=== PATIENT | male | born 1950 | race Caucasian/White ===

== ENCOUNTER → 2017-06-03 | Outpatient (CLI) | payer BC ==
[~2017-06-03] MED LIST: BNC5 PO; CALC600T9 PO; CLB/200 PO; DIAZ-165 PO; GLUCTAB7 PO; MULT-506 PO; NAPR1TAB9 PO; OMEG10007 PO; RANI150T85 PO; SIMV40TA2 PO; VENL75CA73 PO
--- NOTE | 2017-06-03 11:02 | DIAGNOSTIC IMAGING REPORT ---
L SHOULDER MIN 2 VIEWS CLINICAL HISTORY: LEFT SHOULDER PAIN pain COMPARISON: None. DISCUSSION: Moderate degenerative change of acromioclavicular joint. Glenohumeral joint is unremarkable. No abnormal soft tissue calcifications. No evidence for fracture or dislocation. There is no evidence for soft tissue swelling. IMPRESSION: Moderate degenerative change of the acromioclavicular joint. Otherwise negative study. The above report was generated using voice recognition software. It may contain grammatical, syntax or spelling errors. Electronically signed by: Jakob Brown M.D. 06/03/2017 11:01 AM Dictated Date/Time: 06/03/2017 11:00 AM
== END | disposition home or self-care (01) ==
LOC: C.RDSM 10:51
PROVIDERS: ATTEND Family Medicine
DX: M19.012 Primary osteoarthritis, left shoulder (principal)

== ENCOUNTER → 2017-06-05 | Outpatient (CLI) | payer BC ==
[~2017-06-05] MED LIST changes: -RANI150T85 PO; +ZNTT/150 PO
--- NOTE | 2017-06-05 17:59 | DIAGNOSTIC IMAGING REPORT ---
L UPPER EXT JOINT WITHOUT CLINICAL HISTORY: 66 years-old Male presenting with LEFT SHOULDER PAIN, INJURY TO LEFT ROTATOR CUFF, injury 4 days ago, braced fall with left arm, now with stiffness, pain, limited range of motion. TECHNIQUE: Multisequence, multiplanar MR imaging of the left shoulder was performed without the use of intravenous contrast. IV contrast: None. COMPARISON: Plain radiographs from 06/03/2017. FINDINGS: Localizer images: Unremarkable. Mild bony edema noted at the acromioclavicular joint, which demonstrates hypertrophic degenerative change. No other sites of bony edema. However, extensive interfascial edema throughout the rotator cuff musculature. Prominent loose body in the subcoracoid recess. Evidence of a complete rotator cuff tear of the supraspinatus and infraspinatus tendons with retraction of the tendon over 4 cm from the insertional footplate. The free edge of the tendons are frayed. Teres minor tendon is intact. Additionally, there is tear of the transverse ligament of the subscapularis tendon with displacement of the long head of the biceps tendon medially. Long head of the biceps tendon grossly normal in appearance. Short head of the biceps tendon intact. Findings suggestive of a labral tear involving the anterior inferior labrum. The biceps labral complex is grossly intact. Articular cartilage thinning of the inferior humeral head may be present. Slight superior subluxation of the humeral head with narrowing of the acromiohumeral interval. Trace fluid in the subacromial subdeltoid bursa and trace joint fluid. No fatty atrophy of the musculature. IMPRESSION: 1. Complete rotator cuff tear of the supraspinatus and infraspinatus tendons, which appears acute evidence by extensive interfascial edema. Retraction of frayed tendons over 4 cm from the insertional footplate. 2. Tear of the transverse ligament portion of the subscapularis tendon with medial displacement of the long head of the biceps tendon. 3. Anterior inferior labral tear. 4. Degenerative changes of the acromioclavicular joint. 5. Loose body in the subcoracoid recess. Electronically signed by: Jarvis Aguirre M.D. 06/05/2017 5:58 PM Dictated Date/Time: 06/05/2017 5:49 PM
== END | disposition home or self-care (01) ==
LOC: C.MRIBC 15:29
PROVIDERS: ATTEND Family Medicine
DX: S46.012A Strain of muscle(s) and tendon(s) of the rotator cuff of left shoulder, initial encounter (principal); S43.402A Unspecified sprain of left shoulder joint, initial encounter; X58.XXXA Exposure to other specified factors, initial encounter; M24.012 Loose body in left shoulder

== ENCOUNTER → 2017-06-22 | Day surgery (SDC) | payer OTHER ==
[2017-06-11 12:18] VITALS: Ht 177.8 cm; Wt 79.5 kg
[~2017-06-22] VITALS: Ht 177.8 cm; Wt 79.5 kg
[~2017-06-22] MED LIST changes: +ACETAMINOPHEN 1000 MG/100 ML IV IV ONE; +ATROPINE SULFATE 0.1 MG/ML 5ML SYR IV PRN; +CLINDAMYCIN PHOS 150 MG/ML 2 ML VIAL IV SCH; +DEXAMETHASONE SOD INJ 4 MG/ML VIAL ONE; +EpHEDrine SULFATE INJ 50 MG/ML AMP IV PRN; +EpINEphrine HCL INJ 1 MG/ML 5ML SYRINGE ONE; +FENTANYL CITRATE INJ 50 MCG/1 ML 2 ML VIAL IV PRN; +FENTANYL CITRATE INJ 50 MCG/1 ML 2 ML VIAL ONE; +GLYCOPYRROLATE INJ 0.2 MG/ML VIAL ONE; +HYDROmorphone INJ 1 MG/ML SYR IV PRN; +LACTATED RINGER'S 1000ML 1,000 ML IV SCH; +LIDOCAINE HCL 2% 2 ML VIAL (20MG/ML) ONE; +MIDAZOLAM HCL 1 MG/ML 2ML VIAL ONE; +MoRPHine SULFATE 4 MG/ML 1 ML CARP\\VIAL IV PRN; +NEOSTIGMINE METHYLSULFATE 5 MG/5 ML SYR ONE; +ONDANSETRON INJ 2 MG/ML 2 ML VIAL IV PRN; +ONDANSETRON INJ 2 MG/ML 2 ML VIAL ONE; +OXYCODONE/ACETAMINOPHEN 5-325 TAB PO PRN; +PROMETHAZINE HCL INJ 12.5 MG in SODIUM CHLORIDE 0.9% 50ML 50 ML IV PRN; +PROPOFOL IV EMULSION 10 MG/ML 20 ML VIAL IV ONE; +ROCURONIUM BROMIDE 10 MG/ML 5 ML VIAL IV ONE; +ROPIVACAINE 0.5% 5 MG/ML 30 ML VIAL ONE; +SODIUM CHLORIDE 0.9% 1000ML 1,000 ML IV SCH; +SUCCINYLCHOLINE CHLORIDE 20 MG/ML 10 ML VIAL IV ONE
--- NOTE | 2017-06-22 08:42 | History & Physical Bridge - SC ---
H&P Re-Evaluation Bridge Note: I have examined the patient, reviewed the History & Physical and in the interval since the performance of the History & Physical I have noted the following changes of clinical significance: No changes noted
--- NOTE | 2017-06-22 13:29 | [facility] Post Operative Brief Note ---
Immediate Operative Summary Operative Date Jun 22, 2017. Pre-Operative Diagnosis Left Shoulder Rotator Cuff Tear Post-Operative Diagnosis Same Procedure(s) Performed Left Shoulder Arthoscopy,3 Tendon Rotator Cuff Repair, Biceps Tenotomy, Subacromial Decompression Surgeon Dr. Norwood Organ Recovery Coordinator Surgeon(s) Bindu William PA-C Estimated Blood Loss 10 ml Findings Biceps tendon subluxated medially out of the groove. Biceps tenotomy performed. Upper border subscapularis tear repaired with inverted mattress suture. Retracted supraspinatus tear repaired with four anchors, double row technique with 8 passes of suture through the tendon. Inverted mattress suture used to repair the infraspinatus. Subacromial spur removed, converting type 2 acromion to type 1. Fluids (cc crystalloids) 1300 cc Specimens None Drains None Anesthesia General with interscalene block Complication(s) None Disposition Recovery Room / PACU
--- NOTE | 2017-06-22 13:53 | [facility] Operative Report ---
Operative Report Operative Date Jun 22, 2017. Pre-Operative Diagnosis Left Shoulder Rotator Cuff Tear Post-Operative Diagnosis Same Procedure(s) Performed Left Shoulder Arthoscopy,3 Tendon Rotator Cuff Repair, Biceps Tenotomy, Subacromial Decompression Surgeon Dr. Norwood Solar Hot Water Installer Surgeon(s) Bindu William PA-C Estimated Blood Loss 10 ml Findings Massive left shoulder rotator cuff tear Fluids (cc crystalloids) 1300 cc Specimens None Complication(s) None Disposition Recovery Room / PACU I attest to the content of the Intraoperative Record and any orders documented therein. Any exceptions are noted below.
--- NOTE | 2017-06-22 13:59 | Discharge Instructions ---
Discharge Instructions Date of Service Jun 22, 2017. Admission Reason for Admission: Left Shoulder Rotator Cuff Tear Discharge Discharge Diagnosis / Problem: Left shoulder massive rotator cuff tear Discharge Goals Goal(s): Decrease discomfort, Improve function, Increase independence Activity Recommendations Activity Limitations: as noted below Lifting Limitations: until after follow-up appointment (No lifting more than coffee cup for 6 wks) Exercise/Sports Limitations: until after follow-up appointment May Resume Sexual Activity: after follow-up appointment Shower/Bathe: tomorrow, keep incision dry Driving or Machine Use: No driving until cleared by orthopedic surgeon Weightbearing Status: Left non-weightbearing (No lifing more than coffee cup with left arm for 6 wks.) . Instructions / Follow-Up Instructions / Follow-Up Post-operative Instructions Dear Patient and Family/Friends, Before you are discharged from the hospital, it is important to know what to expect when you get home after surgery. To that end, we have created this sheet of discharge instructions which covers many commonly asked questions. Make sure you go through this sheet in its entirety with your nurse before you are discharged. Please note that we will go over the specifics of your surgery and recovery when you return for your first post-operative visit. Sincerely, Dr. Norwood Pain Expect to be in a fair amount of pain after surgery. Remember, our goal is not to eliminate your pain, but to make it tolerable. It is a good idea to stay ahead of your pain by taking the medications you were prescribed once you get home. Typically, the pain starts improving 3-7 days after surgery. You should start weaning off the narcotic pain medication (oxycodone, hydrocodone, hydromorphone, morphine) as soon as your pain improves. Please call our office if your pain is not adequately controlled. Ice Ice your operative site at least 5 times a day for 15-30 minutes at a time. Make sure you have a thin cloth between the ice or cooling unit and your skin to prevent ojeda bite. This is especially important if you received a nerve block. Continue icing your operative site for the first 5-7 days after surgery , then as needed. Diet/Nausea/Vomiting Start by drinking clear liquids and eating crackers. If you can tolerate this, then you may resume your normal diet. If you feel nauseated or vomit, take Zofran/ondansetron (if prescribed). Please call our office if you have intractable nausea or vomiting, or, if after hours, you may go to the Emergency Room for help. Constipation Constipation is a common side effect of narcotic pain medication. If you have not had a bowel movement within 2 days after surgery, we recommend purchasing an over the counter laxative such as Milk of Magnesia, Dulcolax, or Miralax from a local pharmacy, and taking it as instructed. Call our clinic if any questions. Slings and Braces If you were placed in a sling or brace, it must be worn at all times, including sleep. You may remove your sling or brace for physical therapy, home exercises , and showering. The length of time you will be in your brace and range of motion restrictions depends on what surgery you had; these details will be reviewed at your first post-operative appointment. Nerve block The anesthesia team sometimes places a nerve block to help with post-operative pain control. This results in significant numbness and inability to move the extremity. The nerve block usually wears off in 8-12 hours, but sometimes can last up to 24 hours. Please call our office if you are still unable to move your extremity after 24 hours, unless you received a pain pump to take home. Nerve blocks typically wear off quickly, so start taking pain medication as soon as you start feeling soreness near your surgical site. Weight bearing and Range of Motion. Do not bear any weight through your operative extremity immediately after surgery. If you had upper extremity surgery, do not lift anything with that arm. If you are in a knee brace, keep it locked in place until your follow-up. We will discuss your weight bearing, range of motion, and lifting restrictions in detail at your first post-operative appointment. Continuous Passive Motion (CPM) Machine If you were prescribed a CPM machine, it will start after your first post- operative appointment, at which time we will give you instructions on the range of motion settings and duration of treatment Physical therapy You will be given a prescription for physical therapy or occupational therapy at your first post-operative appointment. Typically, patients start therapy within 1 week of surgery. We may not start your PT for 6 wks. You may be able to do pendulum exercised and table slides in 1-2 wks. You may come out of sling to move your elbow, wrist and hand/fingers. Wound care and showering We will inspect your wound at your first post-operative visit, and may do a dressing change at that time. Most patients will be in a water-proof dressing that is removed 14 days after surgery. It is normal to see some dried blood on the dressing. Do not remove your dressing, paper strips or sutures yourself unless you are given permission. Showering is allowed the day after surgery. Do not scrub or remove any dressings. The wound should not be submerged underwater (i.e. in a bathtub or pool) until 4 weeks after surgery KEILA stockings If you were given white stockings, these are to be worn at all times except to shower (on both legs) for the first 2 weeks after surgery. Driving You may not drive while taking narcotic pain medication or while in a cast, splint, sling or brace. You, the patient, need to make the final determination about when you are safe to drive, however, the earliest you may consider driving after surgery is below: Hand/Wrist/Elbow Surgery: 3 days Shoulder Surgery: 2 weeks Hip,/Knee/Ankle Surgery: 4 weeks Fracture repair: 6 weeks Return to Work Your return to work depends on what surgery was done and what type of work you do. Please bring any paperwork your employer needs completed to your first post -operative visit. Also, bring a description of your job duties, as this helps us to understand what risks you may face at work. Travel Avoid long distance travel (greater than 1 hour) in airplanes and cars for the first 6 weeks after surgery. If you must travel, you need to have a Doppler ultrasound done before you travel to rule out a blood clot in your legs. Follow-up You should have a follow-up appointment already scheduled 1-2 days after surgery. If not, please contact our office to make this appointment before you leave the hospital. When to call the office It is normal to have swelling and bruising in the limb that was operated on. This will improve with time. It is also normal to have fevers for the first 2 days after surgery. Reasons you should call your doctor include: Uncontrolled pain; Nausea, vomiting, or constipation that does not improve with medication; Fevers over 101.5, chills, sweats; Drainage or bleeding from the wound; Foul odor; Spreading areas of redness; Any other concerns Current Hospital Diet Patient's current hospital diet: Discharge Diet Recommended Diet: Regular Diet Procedures Procedures Performed: Left Shoulder Arthoscopy,3 Tendon Rotator Cuff Repair, Biceps Tenotomy, Subacromial Decompression Pending Studies Studies pending at discharge: no Medical Emergencies . Who to Call and When: Medical Emergencies: If at any time you feel your situation is an emergency, please call 911 immediately. . Non-Emergent Contact Non-Emergency issues call your: Primary Care Provider Call Non-Emergent contact if: you have a fever, temperature is above 101.5, your pain is not controlled, your pain is worsening, wound has increased drainage, you have any medication questions . "Provider Documentation" section prepared by Olvin William. . VTE Core Measure Inpt VTE Proph given/why not?: Other Anticoagulation (Aspirin EC 81 mg), ThuyELyla Diaz PA Drug Monitoring Program Search Results: patient reviewed within database, no issues identified, see additional documentation
[2017-06-22 14:25] VITALS: TEMP 36.4
--- NOTE | 2017-06-22 14:48 | OPERATIVE REPORT ---
DATE OF OPERATION: 06/22/2017 PREOPERATIVE DIAGNOSES: Left shoulder massive rotator cuff tear, medially subluxated and torn biceps tendon and subacromial spur. POSTOPERATIVE DIAGNOSES: Same. OPERATIONS PERFORMED: 1. Left shoulder arthroscopic repair of subscapularis, supraspinatus and infraspinatus tendons. Each torn tendon was repaired independently of the other two. 2. Left shoulder biceps tenotomy. 3. Left shoulder subacromial decompression. SURGEON: Jarvis Norwood MD SEWING DEPARTMENT SUPERVISOR: Alden William and Sanjuana Jasso. IV FLUIDS: 1300 mL of crystalloid. ESTIMATED BLOOD LOSS: 10 mL. URINE OUTPUT: Not recorded. COMPLICATIONS: None. SPECIMENS: None. IMPLANTS: 1. Two Arthrex 4.75 corkscrew anchors, double loaded. 2. Four Arthrex self-tapping SwiveLock anchors. INDICATIONS: Mr. Mccollum is a 66-year-old gentleman who had an injury when he fell, walking down stairs, and landing on an outstretched arm on 06/02/2017. Since that time, he has had inability to lift his shoulder. He did have some antecedent shoulder pain, but was never functionally debilitating. On physical exam, his forward flexion was less than the horizontal, similar with abduction. MRI was obtained, showing fatty infiltration of the infraspinatus, indicating a chronic tear as well as a full thickness retracted tear of the supraspinatus and upper border subscapularis tear with subluxation of the biceps tendon. I had a long discussion with him about treatment options. Surgery was indicated to improve his function and allow him to return to his activities of daily living. He understands that due to the massive nature of the tear that the tendons do not always heal even with a good repair. However, the best time to fix it is in the acute period. After reviewing all the risks and benefits of surgery, and answering all his questions, informed consent was signed. OPERATIVE FINDINGS: 1. Biceps tendon was subluxated medially out of the groove. There was fraying noted at its insertion onto the superior labrum. 2. There was a tear of the upper border of the subscapularis involving the proximal 1 cm. 3. There was a full thickness tear of the supraspinatus that was retracted to the level of the glenoid. 4. There was a tear of the infraspinatus with degenerative fraying of the tendon stump at its insertion. 5. The axillary pouch was free of any loose bodies. 6. The articular cartilage of the humeral head was normal. 7. The articular cartilage of the glenoid was normal. 8. The labrum showed degenerative fraying along its posterior, anterior and superior margins. The labral fraying was debrided back to a stable margin. A biceps tenotomy was performed. A single row repair was performed of the upper border subscapularis tear. A double row repair was performed of his supraspinatus tear. A single row repair was performed for his infraspinatus. A subacromial spur was noted consistent with a type 2 acromion. This was removed to a flat surface converting him to a type 1 acromion. DESCRIPTION OF THE OPERATION: The patient was identified in the preoperative holding area, where his surgical site was marked. He was given interscalene block by anesthesia and brought back to the main operating room, where he was placed on the operating room table and general anesthesia was administered. He was moved into the lateral decubitus position. Axillary roll was placed. Beanbag was inflated. All bony prominences were padded. Perioperative antibiotics were administered. He was prepped and draped in the normal sterile fashion. Prior to incision, a multidisciplinary timeout was called. All in the room were in agreement. We began by placing the arm in 10 pounds of longitudinal traction at 30 degrees of forward flexion and 45 degrees of abduction. Posterior viewing portal was created. Diagnostic arthroscopy was performed revealing the above findings. We then introduced the shaver, which was used to debride the labrum back to a stable base. The Arthrex cool cut wand was then used to perform the biceps tenotomy, flush with the insertion into the superior labrum. The biceps tendon retracted out of the joint nicely. We then made an anterior superolateral portal. Through this portal, we were able to debride the footprint of the lesser tuberosity, from which the subscapularis had torn. The scorpion was introduced through the anterior superolateral portal and was used to pass a FiberTape through the torn upper border of the subscapularis. The sutures were fed through a self-punching SwiveLock anchor, which was then placed into the footprint, tapped down into position without difficulty. Next, the scope was moved into subacromial space. Extensive bursitis was encountered, which was removed with the shaver through a lateral working portal. The rotator cuff tear was then explored. Using a [place], I was able to reduce the supraspinatus back on to the footprint; however, his tendon quality was somewhat degenerated and it was under some tension. The cool cut was used to release the supra and infraspinatus muscle bellies off of the acromion, exposing the scapular spine. I then slightly medialized his footprint by approximately 2 mm and debrided this down to fresh bleeding bone. I then made a stab incision just off the lateral acromion after localizing with a spinal needle for his medial row anchors. These were placed first anteriorly and we used the tap as his bone quality was excellent. The sutures were passed up in a horizontal mattress fashion from anterior to posterior. They were shuttled out through an anterior cannula. The more posterior anchor was then placed and sutures were similarly passed in a horizontal mattress fashion. Next, while holding the supraspinatus reduced with a [place], the sutures were tied from posterior to anterior. Once this was complete, one Tigerwire and one Fiberwire suture from each anchor, for a total of 4 sutures, were brought out through the lateral working portal and fed through a self-punching SwiveLock and was placed posteriorly. The sutures were then cut flush. The remaining 4 sutures were then similarly pulled out through the lateral working portal, threaded through the eyelet of a self-punching SwiveLock anchor and then the anterior lateral row anchor was placed. Excellent fixation was obtained. Next, I explored the infraspinatus, which was completely torn off the footprint Therefore, an inverted mattress FiberTape was passed through the infraspinatus and these sutures were placed through a self-punching SwiveLock anchor to reduce the infraspinatus back on to the footprint. At this point, the cuff repair had excellent stability and a nice coverage of the footprint. The subacromial spur was exposed and a 5-0 barrel bur was used to resect this back to a flat margin, converting to a type 1 acromion. The arthroscopic instruments were then removed. His portals were closed with inverted 3-0 Monocryl sutures. Steri-Strips were applied followed by 2 x 2s and Tegaderms. He was then placed into a sling with an abduction pillow. He was rolled supine carefully and extubated and transferred to the recovery room in stable condition. POSTOPERATIVE COURSE: The patient will follow up in my clinic tomorrow, where we will review his arthroscopic images and postoperative restrictions as well as have his first physical therapy appointment. At that point, he will be instructed on pendulum and table top slides. I will avoid any formal physical therapy until after his 6-week postoperative visit. He will be on a massive rotator cuff repair physical therapy protocol. He will be on aspirin for DVT prophylaxis. I attest to the content of the Intraoperative Record and any orders documented therein. Any exceptions are noted below. ALFA
[2017-06-22 15:00] VITALS: BP 108/73; PULSE 70; O2SAT 98
--- NOTE | 2017-06-22 15:04 | Anesthesia Progress Nt - [facility] ---
Anesthesia Post Op Note Date & Time Jun 22, 2017 at 15:04 Vital Signs Pain Intensity: 0 Vital Signs Past 12 Hours Date Time Temp Pulse Resp B/P (MAP) Pulse Ox O2 Delivery O2 Flow Rate FiO2 06/22/17 15:00 70 16 108/73 (85) 98 Room Air 06/22/17 14:25 36.4 82 16 118/64 (82) 97 Room Air 06/22/17 14:22 36.6 84 16 130/80 96 Room Air 06/22/17 14:19 83 14 96 06/22/17 14:19 83 14 06/22/17 14:15 117/90 06/22/17 14:14 88 17 06/22/17 14:14 87 17 97 06/22/17 14:11 109/91 06/22/17 14:09 81 15 100 06/22/17 14:09 82 15 06/22/17 14:05 127/81 06/22/17 14:04 89 15 100 06/22/17 14:04 89 15 06/22/17 14:00 117/86 06/22/17 13:59 89 13 100 06/22/17 13:59 89 13 06/22/17 13:58 88 18 99 06/22/17 13:58 88 18 06/22/17 13:55 120/77 06/22/17 13:53 92 19 100 06/22/17 13:53 93 19 06/22/17 13:52 122/84 06/22/17 13:52 37.0 90 16 122/84 100 Mask 06/22/17 10:08 70 0 100 06/22/17 10:08 70 06/22/17 10:07 64 22 100 06/22/17 10:07 63 06/22/17 10:05 111/71 06/22/17 10:02 68 06/22/17 10:02 68 30 100 06/22/17 10:00 116/72 06/22/17 09:57 66 06/22/17 09:57 67 24 100 06/22/17 09:56 65 06/22/17 09:56 65 24 100 06/22/17 09:55 116/73 06/22/17 09:51 63 15 100 06/22/17 09:51 63 06/22/17 09:50 118/73 06/22/17 09:46 62 17 100 06/22/17 09:46 62 06/22/17 09:45 114/73 06/22/17 09:41 65 06/22/17 09:41 65 23 100 06/22/17 09:40 121/78 06/22/17 09:36 65 06/22/17 09:36 65 16 100 06/22/17 09:35 114/72 06/22/17 09:31 66 06/22/17 09:31 66 19 100 06/22/17 09:30 62 17 114/76 06/22/17 09:25 68 06/22/17 09:25 68 10 134/78 98 06/22/17 09:20 64 11 112/80 06/22/17 09:15 68 13 120/77 99 06/22/17 09:15 69 06/22/17 09:10 64 18 111/76 100 06/22/17 09:10 62 06/22/17 09:05 65 06/22/17 09:05 65 15 100/71 100 06/22/17 09:04 110/71 06/22/17 09:00 63 0 06/22/17 08:55 0 06/22/17 08:50 0 06/22/17 08:45 0 06/22/17 08:40 0 06/22/17 08:35 0 06/22/17 08:25 36.7 73 16 121/76 (91) 98 Room Air Notes Mental Status: alert / awake / arousable, participated in evaluation Pt Amnestic to Procedure: Yes Nausea / Vomiting: adequately controlled Pain: adequately controlled Airway Patency, RR, SpO2: stable & adequate BP & HR: stable & adequate Hydration State: stable & adequate Anesthetic Complications: no major complications apparent
== END | disposition home or self-care (01) ==
LOC: X.SURG 07:30
PROVIDERS: ATTEND Orthopaedic Surgery
DX: S46.012A Strain of muscle(s) and tendon(s) of the rotator cuff of left shoulder, initial encounter (principal); W10.8XXA Fall (on) (from) other stairs and steps, initial encounter; S46.202A Unspecified injury of muscle, fascia and tendon of other parts of biceps, left arm, initial encounter; M75.92 Shoulder lesion, unspecified, left shoulder; I10 Essential (primary) hypertension; E78.5 Hyperlipidemia, unspecified; K21.9 Gastro-esophageal reflux disease without esophagitis; I73.00 Raynaud's syndrome without gangrene; F41.9 Anxiety disorder, unspecified; F32.9 Major depressive disorder, single episode, unspecified; Z79.899 Other long term (current) drug therapy

== ENCOUNTER → 2017-07-30 | Outpatient (CLI) | payer OTHER ==
[~2017-07-30] MED LIST changes: -ACETAMINOPHEN 1000 MG/100 ML IV IV ONE; -ATROPINE SULFATE 0.1 MG/ML 5ML SYR IV PRN; -CLINDAMYCIN PHOS 150 MG/ML 2 ML VIAL IV SCH; -DEXAMETHASONE SOD INJ 4 MG/ML VIAL ONE; -EpHEDrine SULFATE INJ 50 MG/ML AMP IV PRN; -EpINEphrine HCL INJ 1 MG/ML 5ML SYRINGE ONE; -FENTANYL CITRATE INJ 50 MCG/1 ML 2 ML VIAL IV PRN; -FENTANYL CITRATE INJ 50 MCG/1 ML 2 ML VIAL ONE; -GLYCOPYRROLATE INJ 0.2 MG/ML VIAL ONE; -HYDROmorphone INJ 1 MG/ML SYR IV PRN; -LACTATED RINGER'S 1000ML 1,000 ML IV SCH; -LIDOCAINE HCL 2% 2 ML VIAL (20MG/ML) ONE; -MIDAZOLAM HCL 1 MG/ML 2ML VIAL ONE; -MoRPHine SULFATE 4 MG/ML 1 ML CARP\\VIAL IV PRN; -NAPR1TAB9 PO; -NEOSTIGMINE METHYLSULFATE 5 MG/5 ML SYR ONE; -ONDANSETRON INJ 2 MG/ML 2 ML VIAL IV PRN; -ONDANSETRON INJ 2 MG/ML 2 ML VIAL ONE; -OXYCODONE/ACETAMINOPHEN 5-325 TAB PO PRN; -PROMETHAZINE HCL INJ 12.5 MG in SODIUM CHLORIDE 0.9% 50ML 50 ML IV PRN; -PROPOFOL IV EMULSION 10 MG/ML 20 ML VIAL IV ONE; +RANI150T85 PO; -ROCURONIUM BROMIDE 10 MG/ML 5 ML VIAL IV ONE; -ROPIVACAINE 0.5% 5 MG/ML 30 ML VIAL ONE; -SODIUM CHLORIDE 0.9% 1000ML 1,000 ML IV SCH; -SUCCINYLCHOLINE CHLORIDE 20 MG/ML 10 ML VIAL IV ONE; -ZNTT/150 PO
== END | disposition home or self-care (01) ==
LOC: C.RDSM 17:37
PROVIDERS: ATTEND Orthopaedic Surgery
DX: Z98.890 Other specified postprocedural states (principal)

== ENCOUNTER 2023-05-10 06:59 | Inpatient (IN) ==
--- OUTSIDE RECORDS SUMMARY | 2023-05-10 07:03 | External Medical Summary | Continuity of Care Document ---
Author Name Unknown Organization [facility] [id number] Address [address] [place], [place] [id number] Care Team Providers Care Class A Regional Truck Driver Name Role Phone Pancho Pedraza Primary Care Physician [phone] [id number] Date(s): 11/27/[facility] - 11/27/22 [facility] [address], [address] [place] [address] [phone] Discharge Disposition: Home or Self Care Attending Physician: DO Alfonso Jason D Referring Physician: MD Cecilio, Madhav Rizzo Allergies, Adverse Reactions, Alerts No Known Allergies Immunizations Given and Recorded Vaccine Date Status Refusal Reason influenza virus vaccine, inactivated 03/19/22 Phan rded influenza virus vaccine, inactivated 03/23/18 Give n SARS-CoV-2 mRNA (tobrendanameran 5y-11y) 03/19/22 Phan rded SARS-CoV-2 (COVID-19) mRNA BNT-162b2 vax 1 10/31/21 Recorded SARS-CoV-2 (COVID-19) mRNA BNT-162b2 vax 2 08/01/20 Recorded SARS-CoV-2 (COVID-19) mRNA BNT-162b2 vax 3 07/11/20 Recorded tetanus/diphtheria/pertuss, acel (Tdap) 04/03/20 R ecorded tetanus/diphtheria/pertuss, acel (Tdap) 09/15/16 G iven tetanus/diphtheria/pertuss, acel (Tdap) 12/19/05 R ecorded pneumococcal 23-valent vaccine 08/15/19 Recorded zoster vaccine, inactivated 11/07/18 Recorded zoster vaccine, inactivated 06/17/18 Recorded pneumococcal 13-valent vaccine 06/08/17 Recorded zoster vaccine live 08/17/15 Given zoster vaccine live 02/18/13 Given hepatitis B adult vaccine 12/19/05 Recorded hepatitis B adult vaccine 11/30/03 Recorded hepatitis B adult vaccine 02/12/01 Recorded hepatitis A adult vaccine 12/16/05 Recorded hepatitis A adult vaccine 02/12/01 Recorded poliovirus vaccine, inactivated 02/12/01 Recorded 1Result Comment: [facility] pharmacy 2Result Comment: 2020-12-17: Historical information-source unspecified 3Result Comment: 2020-12-17: Historical information-source unspecified Medications atorvastatin 40 mg oral tablet Start: 11/04/22 11:25:00 EDT, See Instructions, Disp# 90 tab, Refills: 3, TAKE 1 TABLET BY MOUTH EVERY DAY, Pharmacy: [email or web address] Start Date: 11/04/22 Status: Ordered calcium-vitamin D extended release Start: 03/28/20 14:46:00 EDT Start Date: 03/28/20 Status: Ordered celecoxib 100 mg oral capsule Start: 02/26/22 9:53:00 EDT, See Instructions, Disp# 90 cap, Refills: 3, TAKE 1 CAPSULE BY MOUTH EVERY DAY, Pharmacy: [email or web address] Start Date: 02/26/22 Status: Ordered diazePAM 5 mg oral tablet Start: 06/10/22 10:31:00 EST, See Instructions, 0.5 tab qhs by psychiatry Start Date: 06/10/22 Status: Ordered diclofenac 1% topical gel Start: 11/12/22 13:18:00 EDT, See Instructions, Disp# 100 g, Refills: 3, APPLY TOPICALLY 4 TIMES DAILY NEEDED FOR LOW BACK PAIN, Pharmacy: [id number] Start Date: 11/12/22 Status: Ordered Effexor 37.5 mg oral tablet Start: 07/04/22 14:17:00 EST, 1 tab, PO, Daily Start Date: 07/04/22 Status: Ordered Effexor 75 mg oral tablet Start: 07/04/22 14:16:00 EST, 1 tab, PO, Daily Start Date: 07/04/22 Status: Ordered famotidine 40 mg oral tablet Start: 07/17/22 13:55:00 EST, See Instructions, Disp# 180 tab, Refills: 3, TAKE 1 TABLET BY MOUTH TWICE A DAY, Pharmacy: [email or web address] Start Date: 07/17/22 Status: Ordered glucosamine Start: 03/28/20 14:46:00 EDT Start Date: 03/28/20 Status: Ordered multivitamin Start: 03/28/20 14:46:00 EDT Start Date: 03/28/20 Status: Ordered naproxen 500 mg (as sodium) oral tablet, extended release Start: 02/04/18 12:18:21 EDT, 1 tab, PO, bid, Disp# 28 tab, PRN: as needed for pain, Pharmacy: [id number] Start Date: 02/04/18 Stop Date: 02/18/18 Status: Ordered olmesartan 5 mg oral tablet Start: 01/30/22 12:40:00 EDT, See Instructions, Disp# 90 tab, Refills: 3, TAKE 1 TABLET BY MOUTH EVERY DAY, Pharmacy: [id number] Start Date: 01/30/22 Status: Ordered potassium bicarbonate Start: 03/28/20 14:47:00 EDT Start Date: 03/28/20 Status: Ordered Viagra 100 mg oral tablet Start: 07/04/22 14:51:00 EST, 1/2-1 tab, PO, Daily, Disp# 6 tab, Refills: 11, 1 hour before sexual activity, PRN: as needed for erectile dysfunction, Pharmacy: [facility]/pharmacy #[id number] Start Date: 07/04/22 Status: Ordered Vitamin D3 Start: 03/28/20 14:46:00 EDT Start Date: 03/28/20 Status: Ordered Problem List Condition Confirmation Course Effective Dates Status H ealth Status Informant ANXIETY Confirmed Active Callus Confirmed Active GERD Confirmed Active Hammertoe of right foot Confirmed Active S/P lumbar laminectomy Confirmed 01/06/18 Active S/P rotator cuff repair 1 Confirmed Active Hyperlipidemia Confirmed Active HYPERTENSION Confirmed Active Low back pain Confirmed Active Medicare annual wellness visit, subsequent Confirmed Active Major depressive disorder, recurrent episode, mild Confirmed Active Need for pneumococcal vaccine Confirmed Active Total globulins measurement Confirmed Active Weight disorder Confirmed Active 1Left Procedures Procedure Date Related Diagnosis Body Site Status MRI - L Spine W/O Contrast 1 02/12/18 Completed X-ray L-Spine bending only 2 02/01/18 Completed Rotator cuff repair 3 06/22/17 Com pleted MRI of shoulder 4 06/05/17 Complet ed Shoulder X-ray 5 06/03/[address] of abdomen and pelvis 6 05/14/16 Completed Colonoscopy 7 04/20/07 Completed wisdom teeth extraction C ompleted 1multilevel degenerative changes present throughout the lumbar spine as described, most severely affecting the L3-4 and L4-5 21. Mildy increased grade 1 retrolisthesis of L4 on L5 with extension 2. No acute frature notified 3left shoulder 4extensive-see scanned report 5Moderate degenerative change of the acromiocclavicular joint. Otherwise negative study. 61) Small left inguinal hernia which contains fat and a small portion of the left anterior bladder. 2) No bowel wall thickening or obstruction 3) Normal appendix 7Colonoscopy normal- Repeat in 10 years. Social History Social History Type Response Smoking Status Never smoked cigaret racquel Sex Male Patient Care team information Care Team Personnel Name: MD Barak, Damian Mustafa Position: Physician - Family Med Member Role: Lifetime Relationship Address: Address: [address] [place] [address] [place] Name: DO Pedraza Franklin J Position: Physician - Family Med Member Role: Primary Care Provider Address: Address: [address] [place] [address] [place] Name: DO Marino Kristen M Position: Physician - Family Med Member Role: Lifetime Relationship Address: Address: [address] [place] [address] [place] Name: Maci Mar MD, Andres Position: Resident Member Role: Lifetime Relationship Address: Address: [address] [place] [address] Care Team Related Persons Name: JESUS WETZEL Address: home [address] [place] [phone]
--- OUTSIDE RECORDS SUMMARY | 2023-05-10 07:03 | External Medical Summary | Continuity of Care Document ---
Author Name Unknown Organization [facility] [address] Address [address] [place], [place] [id number] Care Team Providers Care Application Processor Name Role Phone Pancho Pedraza Primary Care Physician [phone] [facility] [id number] Date(s): 03/31/23 - 03/31/23 [facility] [address] [facility] [address] [facility] [place], [phone] Encounter Diagnosis Hyperlipidemia, unspecified(Final) - Essential (primary) hypertension(Final) - Encounter for screening for malignant neoplasm of prostate(Final) - Discharge Disposition: Home or Self Care Attending Physician: DO Pedraza Franklin J Referring Physician: DO Pedraza Franklin J Allergies, Adverse Reactions, Alerts No Known Allergies Immunizations Given and Recorded Vaccine Date Status Refusal Reason influenza virus vaccine, inactivated 03/19/22 Phan rded influenza virus vaccine, inactivated 03/23/18 Give n SARS-CoV-2 mRNA (tozinameran 5y-11y) 03/19/22 Phan rded SARS-CoV-2 (COVID-19) mRNA [...] poliovirus vaccine, inactivated 02/12/01 Recorded 1Result Comment: [facility] pharmacy 2Result Comment: 2020-12-17: Historical information-source unspecified 3Result Comment: 2020-12-17: Historical information-source unspecified Medications atorvastatin 40 mg oral tablet Start: 11/04/22 11:25:00 EDT, See Instructions, Disp# 90 tab, Refills: 3, TAKE 1 TABLET BY MOUTH EVERY DAY, Pharmacy: [facility] Start Date: 11/04/22 Status: Ordered calcium-vitamin D extended release Start: 03/28/20 14:46:00 EDT Start Date: 03/28/20 Status: Ordered celecoxib 100 mg oral capsule Start: 12/29/22 12:52:00 EDT, See Instructions, Disp# 90 cap, Refills: 3, TAKE 1 CAPSULE BY MOUTH EVERY DAY, Pharmacy: [facility] Start Date: 12/29/22 Status: Ordered diazePAM 5 mg oral tablet Start: 06/10/22 10:31:00 EST, See Instructions, 0.5 tab qhs by psychiatry Start Date: 06/10/22 Status: Ordered diclofenac 1% topical gel Start: 11/12/22 13:18:00 EDT, See Instructions, Disp# 100 g, Refills: 3, APPLY TOPICALLY 4 TIMES DAILY NEEDED FOR LOW BACK PAIN, Pharmacy: [email or web address] Start Date: 11/12/22 Status: Ordered Effexor 37.5 [...] TABLET BY MOUTH TWICE A DAY, Pharmacy: [id number] Start Date: 07/17/22 Status: Ordered glucosamine Start: 03/28/20 14:46:00 EDT Start Date: 03/28/20 Status: Ordered multivitamin Start: 03/28/20 14:46:00 EDT Start Date: 03/28/20 Status: Ordered naproxen 500 mg (as sodium) oral tablet, extended release Start: 02/04/18 12:18:21 EDT, 1 tab, PO, bid, Disp# 28 tab, PRN: as needed for pain, Pharmacy: [id number] Start Date: 02/04/18 Stop Date: 02/18/18 Status: Ordered olmesartan 5 mg oral tablet Start: 02/17/23 13:28:00 EDT, See Instructions, Disp# 90 tab, Refills: 3, TAKE 1 TABLET BY MOUTH EVERY DAY, Pharmacy: [id number] Start Date: 02/17/23 Status: Ordered potassium bicarbonate Start: 03/28/20 14:47:00 EDT Start Date: 03/28/20 Status: Ordered Viagra 100 mg oral tablet Start: 07/04/22 14:51:00 EST, 1/2-1 tab, PO, Daily, Disp# 6 tab, Refills: 11, 1 hour before sexual activity, PRN: as needed for erectile dysfunction, Pharmacy: [facility] #[id number] Start Date: 07/04/22 Status: Ordered Vitamin [...] appendix 7Colonoscopy normal- Repeat in 10 years. Results Laboratory List Name Date Basic Metabolic Panel (BASIC METAB PANEL ) 03/31/23 Lipid Profile (LIPOPROTEINS) 03/31/23 PSA Reflex to FREE PSA (PSA REFLEX TO FR EEPSA) 03/31/23 Most recent to oldest [Reference Range]: 1 eGFR CKD-EPI [>60 mL/min/1.73 m2] 70 mL/ min/1.73 m2 1 (03/31/23 7:10 AM) Non-HDL 119 mg/dL 2 (03/31/23 7:10 AM) PSA Screen [<6.51 ng/mL] 2.20 ng/mL (03/31/23 7:10 AM) Estimated CrCl 60.24 mL/min (03/31/23 7:35 AM) Anion Gap [5-14 mmol/L] 7 mmol/L (03/31/23 7:10 AM) BUN [7-20 mg/dL] 25 mg/dL *HI* (03/31/23 7:10 AM) Ca [8.4-10.2 mg/dL] 9.2 mg/dL (03/31/23 7:10 AM) Chol/HDL 3 (03/31/23 7:10 AM) Chol [125-200 mg/dL] 178 mg/dL (03/31/23 7:10 AM) Cl- [96-107 mmol/L] 106 mmol/L (03/31/23 7:10 AM) HCO3 [22-30 mmol/L] 28 mmol/L (03/31/23 7:10 AM) Cret [0.70-1.30 mg/dL] 1.13 mg/dL (03/31/23 7:10 AM) Glu [74-106 mg/dL] 93 mg/dL (03/31/23 7:10 AM) HDL [>35 mg/dL] 59 mg/dL (03/31/23 7:10 AM) K [3.5-5.1 mmol/L] 4.4 mmol/L (03/31/23 7:10 AM) LDL Chol, Calculated [50-130 mg/dL] 98 m g/dL (03/31/23 7:10 AM) Na [137-145 mmol/L] 141 mmol/L (03/31/23 7:10 AM) TG [<200 mg/dL] 105 mg/dL (03/31/23 7:10 AM) 1Result Comment: Testing Performed By: [facility], [address] [place] [id number] 2Result Comment: Testing Performed By: [facility], [address] [place] [address] Social History Social History Type Response Smoking Status Never smoked cigaret racquel Sex Male Patient Care team information Care Team Personnel Name: MD Cancino Jonathan D Position: Physician - Family Med Member Role: Lifetime Relationship Address: Address: [address] [place] [address] [place] Name: DO Pedraza Franklin J Position: Physician - Family Med Member Role: Primary Care Provider Address: Address: [address] [place] [address] [place] Name: DO Marino Kristen M Position: Physician - Family Med Member Role: Lifetime Relationship Address: Address: [address] [place] [id number] [place] Care Team Related Persons Name: JESUS WETZEL Address: home [address] [place] [phone]
[2023-05-10] MEDS ORDERED: SODIUM CHLORIDE 0.9% 1,000 ML IV ONE ×2 (07:19→09:27)
[2023-05-10] MEDS ORDERED: ADENOSINE IV SOLN 3 MG/ML 2 ML VIAL IV ONE ×2 (07:24→08:41)
--- NOTE | 2023-05-10 07:25 | Emergency Department Note ---
Impression & Plan SVT (supraventricular tachycardia), Leukocytosis, HTN (hypertension) ED Provider Note NAME: LIAT WETZEL AGE: 72 SEX: M : 1950 ARRIVES VIA: Walk-In INFORMANT: Patient ED PROVIDER(S): Rich Michel DO CHIEF COMPLAINT: palpitations HPI: Patient is a 72-year-old male who presents ER for palpitations. This started 17 hours ago. He notes he was seen and evaluated by Dr. Dotson and was diagnosed with SVT. He notes that he has had this multiple times and has been able to break it on his own at home. It started about 17 hours ago and he has not been able to break it. He is done vagal maneuvers and multiple other attempts which include cold showers. He denies any headache or change in vision. No chest pain or shortness of breath. No nausea, vomiting, or diarrhea. He just feels his heart racing at this point. No dysuria, urgency, or frequency. ADDITIONAL HISTORY OBTAINED: Per HPI Chronic Medical/Social Conditions Affecting Care: Per HPI PAST MEDICAL HISTORY:See Below PAST SURGICAL HISTORY:See Below FAMILY HISTORY:See Below SOCIAL HISTORY:See Below HOME MEDICATIONS:See Below ALLERGIES:See Below VITALS:See Below PHYSICAL EXAMINATION: GENERAL: Sitting up in bed, alert, well appearing, well nourished, no distress, non-toxic EYE EXAM: normal conjunctiva. OROPHARYNX: no exudate, no erythema, lips, buccal mucosa, and tongue normal and mucous membranes are moist NECK: supple, no nuchal rigidity, no adenopathy, non-tender LUNGS: Clear to auscultation. Normal chest wall mechanics HEART: no murmurs, S1 normal and S2 normal ABDOMEN: abdomen soft, non-tender, normo-active bowel sounds, no masses, no rebound or guarding. BACK: Back is symmetrical on inspection and there is no deformity, no midline tenderness, no CVA tenderness. SKIN: no rashes and no bruising UPPER EXTREMITIES: upper extremities are grossly normal. LOWER EXTREMITIES: No pitting edema. NEURO EXAM: Normal sensorium, cranial nerves II-XII grossly intact, normal speech, no gross weakness of arms, no gross weakness of legs. MEDICAL DECISION MAKING: Patient is a 72-year-old male who presents ER for above-stated complaint. IV was established blood work is obtained. Labs show leukocytosis of 26,000. No significant anemia. BMP along LFTs bilirubin was unremarkable. Lipase was normal. Troponin was normal initially and then trended up to 22. TSH was unremarkable. UA was clean. Viral panel was negative. He was given a dose of Rocephin and fluids. He initially was given adenosine and broke into a sinus rhythm then converted back into what appeared to be in SVT with some atrial activity. He was then given Lopressor and adenosine and converted back to a sinus rhythm which helped longer but then he reverted back into SVT. Following this he was given additional dose of Lopressor after I discussed the case with cardiology and they recommended another dose by Dr. Cates. With the white count and him flipping back and forth between sinus and SVT/atrial tachycardia [facility] and [facility]. He was admitted for further work-up External Records Reviewed: None Consults/Care Managements Discussions: Per [facility] Triage Nursing notes reviewed. Limited review of prior medical records performed Vital Signs: reviewed and remarkable for no significant abnormalities Differential diagnosis: Cardiac ischemia, aortic dissection, pulmonary embolism, pneumothorax, pneumonia, pericarditis, myocarditis, esophageal rupture, GERD, cholecystitis, pancreatitis, musculoskeletal, as well as other pathologies. ER treatment provided: See below Diagnostics interpreted by me include EKG and cardiac monitoring as listed below: -Cardiac Monitoring: An order was placed for continuous cardiac monitoring. The monitor shows a rate of 145 with atrial tachycardia rhythm. -ECG: Atrial tachycardia rate of 145 Normal axis No PVCs QTc 537 -Laboratory studies:Interpreted by me as stated above in MDM and shown below. Imaging studies: Xrays: As interpreted by me: Portable AP upright 1 view of the chest shows no focal infiltrate CTs show: none Procedures:none Critical Care: I have personally spent 31 minutes of critical care time in the direct management of this patient. This includes bedside care, interpretation of diagnostic studies, and testing, discussion with consultants, patient, and family members, and other required patient management activities. This 31 minutes is in excess of all separately billable procedures. Past Med/Surg History Social History Smoking Status: Never smoker Feels Safe at Home: Yes Allergies Allergies Allergy/AdvReac Type Severity Reaction Status Date / Time amoxicillin AdvReac Unknown GI UPSET; Verified 05/10/23 10:00 PT UNSURE IF REALLY ALLERGIC TO IT Home Meds Home Medications Medication Instructions Recorded Confirmed calcium carbonate 600 mg-vitamin 1 cap PO .AT LUNCH TIME 02/17/23 05/10/23 D3 12.5 mcg (500 unit) capsule (Calcium 600 with Vitamin D3) famotidine 40 mg tablet 40 mg PO BID 02/17/23 05/10/23 multivitamin 1 tab PO DAILY 02/17/23 05/10/23 olmesartan 5 mg tablet 5 mg PO DAILY 02/17/23 05/10/23 omega-3 700 [id number] 1 cap PO BID 02/17/23 05/10/23 oil-flaxseed 320 mg-vit E capsule,DR atorvastatin 40 mg tablet 40 mg PO HS 05/10/23 05/10/23 celecoxib 100 mg capsule 100 mg PO HS 05/10/23 05/10/23 diclofenac sodium 1 % topical gel 2 g topical QID PRN LOWER BACK PAIN 05/10/23 05/10/23 potassium 99 mg tablet 99 mg PO .AT LUNCH TIME 05/10/23 05/10/23 sildenafil 100 mg tablet 50 - 100 mg PO DAILY PRN Sexual 05/10/23 05/10/23 Activity venlafaxine 37.5 mg See Rx Instructions .Route .COMPLEX 05/10/23 05/10/23 capsule,extended release 24 hr venlafaxine 75 mg capsule,extended See Rx Instructions .Route .COMPLEX 05/10/23 05/10/23 release 24 hr Results & Data (ED) Vital Signs Vital Signs - 24 hr 05/10/23 07:05 05/10/23 07:27 05/10/23 07:30 Temperature 36.4 C L Temperature Source Temporal Artery Scan Pulse Rate 156 H 143 H 140 H Pulse Rate [Right Finger] Pulse Rate from SpO2 Sensor Pulse Rhythm Pulse Rhythm [Right Finger] Pulse Strength [Right Finger] Respiratory Rate 16 21 Respiratory Effort / Characteristics Non-Labored Respiratory Depth Normal Blood Pressure 176/100 H 139/94 Blood Pressure [Right Arm] Blood Pressure Mean 125 109 Blood Pressure Mean [Right Arm] Pulse Oximetry 99 99 Oxygen Delivery Method Room Air Room Air Sepsis Recent Fever Within 48 Hours No Sepsis New/Unexplained Change in Mental Status No Sepsis Action Taken by Nursing No Action Required 05/10/23 07:48 05/10/23 08:00 05/10/23 08:09 Temperature Temperature Source Pulse Rate 131 H 119 H 131 H Pulse Rate [Right Finger] Pulse Rate from SpO2 Sensor Pulse Rhythm Pulse Rhythm [Right Finger] Pulse Strength [Right Finger] Respiratory Rate 22 Respiratory Effort / Characteristics Respiratory Depth Blood Pressure 128/86 139/92 128/86 Blood Pressure [Right Arm] Blood Pressure Mean 107 Blood Pressure Mean [Right Arm] Pulse Oximetry 100 Oxygen Delivery Method Sepsis Recent Fever Within 48 Hours Sepsis New/Unexplained Change in Mental Status Sepsis Action Taken by Nursing 05/10/23 08:15 05/10/23 08:15 05/10/23 08:30 Temperature Temperature Source Pulse Rate 114 H 115 H Pulse Rate [Right Finger] 117 H Pulse Rate from SpO2 Sensor Pulse Rhythm Regular Pulse Rhythm [Right Finger] Regular Pulse Strength [Right Finger] Normal Respiratory Rate 16 15 21 Respiratory Effort / Characteristics Respiratory Depth Blood Pressure 141/89 H Blood Pressure [Right Arm] 126/86 Blood Pressure Mean 102 Blood Pressure Mean [Right Arm] 99 Pulse Oximetry 96 96 97 Oxygen Delivery Method Room Air Room Air Sepsis Recent Fever Within 48 Hours Sepsis New/Unexplained Change in Mental Status Sepsis Action Taken by Nursing 05/10/23 09:01 05/10/23 09:31 05/10/23 11:00 Temperature Temperature Source Pulse Rate 80 75 Pulse Rate [Right Finger] Pulse Rate from SpO2 Sensor 79 Pulse Rhythm Pulse Rhythm [Right Finger] Pulse Strength [Right Finger] Respiratory Rate 12 15 20 Respiratory Effort / Characteristics Respiratory Depth Blood Pressure 131/90 136/100 140/88 Blood Pressure [Right Arm] Blood Pressure Mean 103 112 105 Blood Pressure Mean [Right Arm] Pulse Oximetry 99 95 95 Oxygen Delivery Method Room Air Room Air Room Air Sepsis Recent Fever Within 48 Hours Sepsis New/Unexplained Change in Mental Status Sepsis Action Taken by Nursing Laboratory Data 05/10/23 07:26 05/10/23 07:26 Lab Results 05/10/23 05/10/23 05/10/23 Range/Units 07:26 09:41 10:21 WBC 26.07 H (4.8-10.8) K/ul RBC 4.23 L (4.70-6.10) M/uL Hgb 13.9 L (14.0-18.0) g/dl Hct 40.6 L (42.0-52.0) % MCV 96.0 (80.0-100.0) fL MCH 32.9 (25.0-34.0) pg MCHC 34.2 (32.0-36.0) g/dL RDW Std Deviation 46.4 H (36.4-46.3) fL RDW Coeff of George 13.0 (11.5-14.5) % Plt Count 185 (130-400) K/uL MPV 10.3 (9.4-12.4) fL Immature Gran % (Auto) 0.8 % Neut % (Auto) 85.2 % Lymph % (Auto) 7.2 % [place] % (Auto) 5.5 % Eos % (Auto) 0.9 % Baso % (Auto) 0.4 % Neut # (Auto) 22.20 H (1.40-6.50) K/uL Lymph # (Auto) 1.88 (1.20-3.40) K/uL [place] # (Auto) 1.44 H (0.11-0.59) K/uL Eos # (Auto) 0.23 (0.00-0.50) K/uL Baso # (Auto) 0.10 (0.00-0.20) K/uL Immature Gran # (Auto) 0.22 H (0.01-0.20) K/uL Sodium 137 (136-145) mmol/L Potassium 3.8 (3.5-5.1) mmol/L Chloride 103 (98-107) mmol/L Carbon Dioxide 25 (21-32) mmol/L Anion Gap 9 (3-11) BUN 18 (6-23) mg/dl Creatinine 1.12 (0.6-1.4) mg/dl Est Cr Clr Drug Dosing 63.4 ml/min Est GFR ( Amer) 76.7 ml/min Est GFR (Non-Af Amer) 66.2 ml/min BUN/Creatinine Ratio 16.1 (10-20) Glucose 142 H (70-99(Fasting)) mg/dl Lactate 1.0 (0.4-2.0) mmol/L Calcium 9.0 (8.6-10.3) mg/dl Magnesium 1.8 (1.7-2.4) mg/dl Total Bilirubin 0.8 (0.2-1.0) mg/dl AST 20 (13-39) U/L ALT 15 (7-52) U/L Alkaline Phosphatase 86 (34-104) U/L Troponin I High Sens 12.5 22.3 H (0-20) pg/ml Total Protein 7.6 (6.0-8.3) gm/dl Albumin 4.0 (3.4-5.0) gm/dl Globulin 3.6 (2.5-4.0) gm/dl Albumin/Globulin Ratio 1.1 (0.9-2) Lipase 15 (11-82) U/L Procalcitonin < 0.05 (0-0.5) ng/ml TSH 4.868 H (0.300-4.500) uIu/ml Free T4 0.86 (0.61-1.60) ng/dl Urine Color Urine Appearance (Clear) Urine pH (4.5-7.5) Ur Specific Erwin (1.000-1.030) Urine Protein (Negative) Urine Glucose (UA) (Negative) Urine Ketones (Negative) Urine Blood (Negative) Urine Nitrite (Negative) Urine Bilirubin (Negative) Urine Urobilinogen (Negative) Ur Leukocyte Esterase (Negative) Adenovirus (PCR) (NotDetected) B. pertussis DNA (PCR) (NotDetected) B.parapertussis DNA PCR (NotDetected) C. pneumoniae DNA (PCR) (NotDetected) Coronavirus OC43 (PCR) (NotDetected) Coronavirus HKU1 (PCR) (NotDetected) Coronavirus 229E (PCR) (NotDetected) SARS-CoV-2 (PCR) (NotDetected) Coronavirus NL63 (PCR) (NotDetected) Human Metapneumovir PCR (NotDetected) Influenza Type A (PCR) (NotDetected) Influenza Type B (PCR) (NotDetected) M. pneumoniae (PCR) (NotDetected) Parainfluenza 1 (PCR) (NotDetected) Parainfluenza 2 (PCR) (NotDetected) Parainfluenza 3 (PCR) (NotDetected) Parainfluenza 4 (PCR) (NotDetected) RSV (PCR) (NotDetected) Entero/Rhino (PCR) (NotDetected) 05/10/23 05/10/23 Range/Units 10:26 11:54 WBC (4.8-10.8) K/ul RBC (4.70-6.10) M/uL Hgb (14.0-18.0) g/dl Hct (42.0-52.0) % MCV (80.0-100.0) fL MCH (25.0-34.0) pg MCHC (32.0-36.0) g/dL RDW Std Deviation (36.4-46.3) fL RDW Coeff of George (11.5-14.5) % Plt Count (130-400) K/uL MPV (9.4-12.4) fL Immature Gran % (Auto) % Neut % (Auto) % Lymph % (Auto) % [place] % (Auto) % Eos % (Auto) % Baso % (Auto) % Neut # (Auto) (1.40-6.50) K/uL Lymph # (Auto) (1.20-3.40) K/uL [place] # (Auto) (0.11-0.59) K/uL Eos # (Auto) (0.00-0.50) K/uL Baso # (Auto) (0.00-0.20) K/uL Immature Gran # (Auto) (0.01-0.20) K/uL Sodium (136-145) mmol/L Potassium (3.5-5.1) mmol/L Chloride (98-107) mmol/L Carbon Dioxide (21-32) mmol/L Anion Gap (3-11) BUN (6-23) mg/dl Creatinine (0.6-1.4) mg/dl Est Cr Clr Drug Dosing ml/min Est GFR ( Amer) ml/min Est GFR (Non-Af Amer) ml/min BUN/Creatinine Ratio (10-20) Glucose (70-99(Fasting)) mg/dl Lactate (0.4-2.0) mmol/L Calcium (8.6-10.3) mg/dl Magnesium (1.7-2.4) mg/dl Total Bilirubin (0.2-1.0) mg/dl AST (13-39) U/L ALT (7-52) U/L Alkaline Phosphatase (34-104) U/L Troponin I High Sens (0-20) pg/ml Total Protein (6.0-8.3) gm/dl Albumin (3.4-5.0) gm/dl Globulin (2.5-4.0) gm/dl Albumin/Globulin Ratio (0.9-2) Lipase (11-82) U/L Procalcitonin (0-0.5) ng/ml TSH (0.300-4.500) uIu/ml Free T4 (0.61-1.60) ng/dl Urine Color Yellow Urine Appearance Clear (Clear) Urine pH 7.5 (4.5-7.5) Ur Specific Erwin 1.013 (1.000-1.030) Urine Protein Negative (Negative) Urine Glucose (UA) Negative (Negative) Urine Ketones Negative (Negative) Urine Blood Negative (Negative) Urine Nitrite Negative (Negative) Urine Bilirubin Negative (Negative) Urine Urobilinogen Negative (Negative) Ur Leukocyte Esterase Negative (Negative) Adenovirus (PCR) Not Detected (NotDetected) B. pertussis DNA (PCR) Not Detected (NotDetected) B.parapertussis DNA PCR Not Detected (NotDetected) C. pneumoniae DNA (PCR) Not Detected (NotDetected) Coronavirus OC43 (PCR) Not Detected (NotDetected) Coronavirus HKU1 (PCR) Not Detected (NotDetected) Coronavirus 229E (PCR) Not Detected (NotDetected) SARS-CoV-2 (PCR) Not Detected (NotDetected) Coronavirus NL63 (PCR) Not Detected (NotDetected) Human Metapneumovir PCR Not Detected (NotDetected) Influenza Type A (PCR) Not Detected (NotDetected) Influenza Type B (PCR) Not Detected (NotDetected) M. pneumoniae (PCR) Not Detected (NotDetected) Parainfluenza 1 (PCR) Not Detected (NotDetected) Parainfluenza 2 (PCR) Not Detected (NotDetected) Parainfluenza 3 (PCR) Not Detected (NotDetected) Parainfluenza 4 (PCR) Not Detected (NotDetected) RSV (PCR) Not Detected (NotDetected) Entero/Rhino (PCR) Not Detected (NotDetected) Administered Medications Magnesium Sulfate/Dextrose (Magnesium Sulfate / D5w) 1 gm in 100 mls @ 100 mls/hr IV Q1H BIBIANA Stop: 05/10/23 13:20 Last Admin: 05/10/23 11:58 Dose: 100 mls/hr Documented By: DIONY Discontinued Medications Adenosine (Adenosine Iv Soln 3 Mg/Ml 2 Ml Vial) Confirm Administered Dose 6 mg IV .STK-MED ONE Stop: 05/10/23 07:25 Last Admin: 05/10/23 07:47 Dose: 6 mg Documented By: DIONY Adenosine (Adenosine Iv Soln 3 Mg/Ml 2 Ml Vial) Confirm Administered Dose 6 mg IV .STK-MED ONE Stop: 05/10/23 08:42 Last Admin: 05/10/23 08:56 Dose: Not Given Documented By: DIONY Adenosine (Adenosine Iv Soln 3 Mg/Ml 2 Ml Vial) 6 mg IV NOW STA Stop: 05/10/23 08:45 Last Admin: 05/10/23 08:55 Dose: 6 mg Documented By: DIONY Sodium Chloride (Nss) 1,000 mls @ 999 mls/hr IV .Q1H1M ONE Stop: 05/10/23 08:19 Last Infusion: 05/10/23 08:56 Dose: Infused Documented By: Admin: 05/10/23 07:48 Dose: 999 mls/hr Documented By: DIONY Ceftriaxone Sodium (Rocephin) 2,000 mg in 50 mls @ 100 mls/hr IV NOW STA Stop: 05/10/23 09:45 Last Infusion: 05/10/23 10:39 Dose: Infused Documented By: Admin: 05/10/23 09:56 Dose: 100 mls/hr Documented By: DIONY Sodium Chloride (Nss) 1,000 mls @ 999 mls/hr IV .Q1H1M ONE Stop: 05/10/23 10:27 Last Infusion: 05/10/23 11:45 Dose: Infused Documented By: Admin: 05/10/23 10:39 Dose: 999 mls/hr Documented By: DIONY Metoprolol Tartrate (Metoprolol Tartrate 1 Mg/Ml Vial) Confirm Administered Dose 5 mg IV .STK-MED ONE Stop: 05/10/23 07:46 Last Admin: 05/10/23 07:48 Dose: 5 mg Documented By: DIONY Metoprolol Tartrate (Metoprolol Tartrate 1 Mg/Ml Vial) 5 mg IV NOW STA Stop: 05/10/23 07:57 Last Admin: 05/10/23 08:22 Dose: Not Given Documented By: DIONY Potassium Chloride (Potassium Chloride Crtab 20 Meq Tabcr) 40 meq PO NOW STA Stop: 05/10/23 10:08 Last Admin: 05/10/23 10:39 Dose: 40 meq Documented By: DIONY Imaging Data Radiologist's Impression: Chest X-Ray 05/10/23 07:19 XR chest 1V portable CLINICAL HISTORY: Chest pain, nonspecific COMPARISON STUDY: Chest radiograph February 10, 2023. FINDINGS: Incidental note is made of surgical anchors within the left humeral head. Lung volumes are normal. Lungs are clear. There is no pneumothorax or pleural effusion. Cardiac size is normal. Mediastinal contours are normal. There is no evidence for pulmonary edema. IMPRESSION: No acute cardiopulmonary findings. ACT 112: Negative or not required by law. Electronically signed by: Alexander Naranjo M.D. 05/10/2023 7:58 AM Discharge Plan Visit Data Chief Complaint: Tachycardia Stated Complaint: TACHYCARDIC ED Provider: Rich Michel Discharge Problem: SVT (supraventricular tachycardia), Leukocytosis, HTN (hypertension) Forms Stand Alone Forms: [email or web address] Prescriptions Prescriptions: No Action calcium carbonate-vitamin D3 [Calcium 600 with Vitamin D3] 600 mg-12.5 mcg (500 unit) capsule 1 cap PO .AT LUNCH TIME [id number] 700-320 mg capsule,delayed release(DR/EC) 1 cap PO BID multivitamin Tablet 1 tab PO DAILY olmesartan 5 mg tablet 5 mg PO DAILY famotidine 40 mg tablet 40 mg PO BID atorvastatin 40 mg tablet 40 mg PO HS venlafaxine 37.5 mg capsule,extended release 24hr See Rx Instructions .ROUTE .COMPLEX Rx Instructions: Take 37.5mg w/75mg = 112.5mg by mouth every morning venlafaxine 75 mg capsule,extended release 24hr See Rx Instructions .ROUTE .COMPLEX Rx Instructions: Take 75mg w/37.5mg = 112.5mg by mouth every morning sildenafil 100 mg tablet 50 - 100 mg PO DAILY PRN (Reason: Sexual Activity) potassium 99 mg Tablet 99 mg PO .AT LUNCH TIME celecoxib 100 mg capsule 100 mg PO HS diclofenac sodium 1 % gel 2 g TOPICAL QID PRN (Reason: LOWER BACK PAIN) Referrals Referrals: Pancho Pedraza DO [Primary Care Provider] - Discharge Problem: Leukocytosis Qualifiers: Leukocytosis type: unspecified Qualified Code(s): D72.829 - Elevated white blood cell count, unspecified HTN (hypertension) Qualifiers: Hypertension type: unspecified Qualified Code(s): I10 - Essential (primary) hypertension
[2023-05-10] MEDS ORDERED: METOPROLOL TARTRATE 1 MG/ML VIAL IV ONE (07:45)
[2023-05-10 07:53] LABS: Hematocrit (blood only) 40.6 % (42.0-52.0); Hemoglobin 13.9 g/dl (14.0-18.0); Mean Corpuscular Hemoglobin 32.9 pg (25.0-34.0); Mean Corpuscular Hgb Conc 34.2 g/dL (32.0-36.0); Mean Platelet Volume 10.3 fL (9.4-12.4); Platelet Count 185 K/uL (130-400); RDW Standard Deviation 46.4 fL (36.4-46.3); Red Blood Count 4.23 M/uL (4.70-6.10); White Blood Count 26.07 K/ul (4.8-10.8)
[2023-05-10] MEDS ORDERED: METOPROLOL TARTRATE 1 MG/ML VIAL IV STA (07:56)
--- NOTE | 2023-05-10 07:59 | XRay Report ---
XR chest 1V portable CLINICAL HISTORY: Chest pain, nonspecific COMPARISON STUDY: Chest radiograph February 10, 2023. FINDINGS: Incidental note is made of surgical anchors within the left humeral head. Lung volumes are normal. Lungs are clear. There is no pneumothorax or pleural effusion. Cardiac size is normal. Medias tinal contours are normal. There is no evidence for pulmonary edema. IMPRESSION: No acute cardiopulmonary findings. ACT 112: Negative or not required by law. Electronically signed by: Alexander Naranjo M.D. 05/10/2023 7:58 AM
[2023-05-10 08:11] LABS: Albumin Globulin Ratio 1.1 (0.9-2); BUN Creatinine Ratio 16.1 (10-20); Bilirubin,Total 0.8 mg/dl (0.2-1.0); Creatinine Clr Calc Pharmacy 63.4 ml/min; Est GFR (African American) 76.7 ml/min; Est GFR (Non-African American) 66.2 ml/min; Globulin 3.6 gm/dl (2.5-4.0); Potassium 3.8 mmol/L (3.5-5.1); Total Protein 7.6 gm/dl (6.0-8.3)
[2023-05-10 08:16] LABS: Basophils % (auto) 0.4 %; Eosinophils # (auto) 0.23 K/uL (0.00-0.50); Eosinophils % (auto) 0.9 %; Immature Granulocytes # (auto) 0.22 K/uL (0.01-0.20); Immature Granulocytes % (auto) 0.8 %; Lymphocytes # (auto) 1.88 K/uL (1.20-3.40); Lymphocytes % (auto) 7.2 %; Monocytes # (auto) 1.44 K/uL (0.11-0.59); Monocytes % (auto) 5.5 %; Neutrophils % (auto) 85.2 %; Troponin I High Sensitivity 12.5 pg/ml (0-20)
[2023-05-10 08:42] LABS: Thyroid Stimulating Hormone 4.868 uIu/ml (0.300-4.500)
[2023-05-10] MEDS ORDERED: ADENOSINE IV SOLN 3 MG/ML 2 ML VIAL IV STA (08:44)
[2023-05-10] MEDS ORDERED: cefTRIAXone SODIUM 2,000 MG/50 ML BAG IV STA (09:16)
[2023-05-10] MEDS ORDERED: METOPROLOL TARTRATE 1 MG/ML VIAL IV PRN ×3 (09:27→15:37)
[2023-05-10 09:37] LABS: T4 Free Thyroxine 0.86 ng/dl (0.61-1.60)
[2023-05-10] MEDS ORDERED: POTASSIUM CHLORIDE CRTAB 20 MEQ TABCR PO STA (10:07)
--- NOTE | 2023-05-10 10:14 | History & Physical Report ---
Date of Service May 10, 2023 Assessment & Plan (1) Supraventricular tachycardia: Plan: -Admit to the PCU on tele -Currently hemodynamically stable, in NSR with HR in the 70's-80's, and stable on RA -Patient developed tachycardia yesterday afternoon -Has a known hx of relatively asymptomatic and intermittent SVT, last seen by Cardiology on 02/17/23 -Patient was taught multiple techniques to convert himself back to NSR but all were unsuccessful -Exact etiology is unknown at this time, could possible be due to recent respiratory infection exacerbating his known intermittent SVT -Low suspicion for PE at this time as he is without signs/symptoms of DVT, has been hemodynamically stable, stable on RA, and without pleuritic chest pain -Potassium is 3.8, waiting on Mag level ordered on admission -Last echo was on 03/13/23, showed Grade 1 diastolic dysfunction mitral mild mitral regurgitation, and mitral valve prolapse but otherwise unremarkable >Will hold repeat echo for now -High sen trop is WNL, patient is without chest pain to suggest ACS at this time >Will repeat a second high sen trop for continued monitoring -S/P 2 doses of 6 mg IV adenosine and 5 mg IV metoprolol -Will order one prn dose of Iv metoprolol if he goes back into SVT with communic ation noted to let international student counselor provider know -Will Consult Cardiology -SQ lovenox for DVT PPX -HH diet -AM CBC, BMP, Mag, PT/INR (2) Leukocytosis: Plan: -Patient noted to have a significant leukocytosis of 26 with neutrophile predominance of 22 -He has had respiratory symptoms over the past week such as congestion, productive cough now with green sputum, and fatigue -No sinus pressure/pain, abdominal symptoms, urinary symptoms, or signs of skin infection -He had one episode of non-bloody diarrhea on 05/04 but denies other episodes this week -While a portion of his leukocytosis could be reactive from his Tachycardia, cannot rule out infection at this time -CXR was read as negative for acute findings -S/P 1L NSS and a dose of Ceftriaxone in the ED -Will obtain UA for further evaluation -Follow full resp biofire and blood cultures ordered in the ED -Will continue with Ceftriaxone for now -Will obtain sputum culture with gram stain -Incentive spirometry, flutter therapy, prn Xoponex for wheezing for now (3) HTN (hypertension): Plan: -Stable -Will hold Olmesartan for now to avoid hypotension in case further IV cardiac medications are required (4) Anxiety: Plan: -Continue Venlafaxine (5) GERD (gastroesophageal reflux disease): Plan: -Conitnue famotidine Plan The patient was discussed with Dr. Wei at the time of the admission History of Present Illness Chief Complaint: Tachycardia Primary Care Provider: Pancho Pedraza DO Bill is a 72 year old male with a PMH significant HTN, anxiety, GERD, and SVT who presented to the [facility] ED on 05/10 with complaints of recurrent tachycardia. In the ED he was noted to be tachycardic with HR in the 150's but was otherwise stable. Labs were significant for a leukocytosis of 26 with Neutrophil predominance of 22, high sen trop WNL, and TSH of 4.86 with Free T4 WNL. Chest xray was read as negative for acute findings. ECG showed SVT in the 140's with T-wave inversions in the anterior and inferior leads. The patient was initially given 6mg IV adenosine with conversion to NSR, but the patient flipped back into SVT shortly after. He received a dose of 5 mg IV lopressor and and additional 6 mg IV adenosine with conversion back to NSR again. Prior to admission the patient was also given 1L NSS with a second liter ordered and a dose of ceftriaxone. At the time of the exam the patient was sitting in bed in no acute distress, currently with HR in the 70's in NSR. He states that he started to develop upper respiratory symptoms such as congestion, minimally productive cough, and fatigue approximately one week ago. He denies recent fever, chills, chest pain, SOB, hemoptysis, pleuritic chest pain, abd pain, nausea, vomiting, dysuria, hemat uria, melena, and recent trauma. He did fly from [place] to [place] on 05/04. When asked, he states that he had mild, symmetrical, BL LE swelling just proximal to his ankles the day after the flight; however, this has subsequently resolved. Yesterday his sputum productive changed from white to green/yellow. He states that he started to develop tachycardia last afternoon while resting. He states he has used all the techniques Cardiology taught him such as Carotid massage, vagal maneuvers, drinking cold water, splashing cold water on his face, and taking a cold shower without resolution of his symptoms. He came to the ED this am as his tachycardia would not resolve. He currently feels well and has no complaints. He has no other symptoms to suggest other sources of infection such as sinus pressure/pain, nausea, vomiting, dysuria, hematuria, and recent wounds/skin infections. When asked, he had one episode of non-bloody diarrhea when his URI symptoms started on 05/04 but denies other episodes of diarrhea. He is a full code and would want his to make medical decisions for him if he cannot make them himself. Please refer to Dr. Wei's attestation for any changes to the treatment plan Allergies Allergy/AdvReac Type Severity Reaction Status Date / Time amoxicillin AdvReac Unknown GI UPSET; Verified 05/10/23 10:00 PT UNSURE IF REALLY ALLERGIC TO IT Home Medications Medication Instructions Recorded Confirmed Type calcium carbonate 600 mg-vitamin 1 cap PO .AT LUNCH TIME 02/17/23 05/10/23 History D3 12.5 mcg (500 unit) capsule (Calcium 600 with Vitamin D3) famotidine 40 mg tablet 40 mg PO BID 02/17/23 05/10/23 History multivitamin 1 tab PO DAILY 02/17/23 05/10/23 History olmesartan 5 mg tablet 5 mg PO DAILY 02/17/23 05/10/23 History omega-3 700 rs-foh-jlo-ala-fish 1 cap PO BID 02/17/23 05/10/23 History oil-flaxseed 320 mg-vit E DR amanda atorvastatin 40 mg tablet 40 mg PO HS 05/10/23 05/10/23 History celecoxib 100 mg capsule 100 mg PO HS 05/10/23 05/10/23 History diclofenac sodium 1 % topical gel 2 g topical QID PRN LOWER BACK PAIN 05/10/23 05/10/23 History potassium 99 mg tablet 99 mg PO .AT LUNCH TIME 05/10/23 05/10/23 History sildenafil 100 mg tablet 50 - 100 mg PO DAILY PRN Sexual 05/10/23 05/10/23 History Activity venlafaxine 37.5 mg See Rx Instructions .Route .COMPLEX 05/10/23 05/10/23 History capsule,extended release 24 hr venlafaxine 75 mg capsule,extended See Rx Instructions .Route .COMPLEX 05/10/23 05/10/23 History release 24 hr flecainide 150 mg tablet 300 mg (2 x 150 mg) PO ONCE PRN 05/11/23 Rx tachycardia #30 tabs Past Med/Surg History Social History Smoking Status: Never smoker Second Hand Exposure: No; Do You Dip or Chew Tobacco: No; Hx Alcohol Use: Yes Hx Substance Use: No Preferred Language: Mongolian Complaints Coordinator Required: No Beliefs That Will Affect Care: None Feels Safe at Home: Yes Assistive Devices: None Physical Exam Physical Exam: Physical Exam: General: In no acute distress, stated age, well-nourished, non-toxic appearing HEENT: Normocephalic, atraumatic, no scleral icterus, negative tenderness to palpation over the frontal and maxillary sinuses, pupils around round, symmetr ical, and reactive to light, dry mucus membranes, trachea midline, no thyromegaly Chest/Pulm: No respiratory distress, symmetrical chest expansion, clear breath sounds throughout Cardiac: RRR, no murmurs noted Abdomen: Negative for ascites and bruising, normoactive bowel sounds, soft, non-tender to palpation throughout Musculoskeletal: Symmetrical and without signs of acute trauma, upper and lower extremities with full ROM, no atrophy, spasticity, or flaccidity Extremities: Radial, dorsalis pedis, and posterior tibial pulses are intact and symmetrical, no edema noted in the BL LE's Skin: Warm, dry, no rashes , lesions, or scars noted Neuro: Alert and oriented to person, place, month, year, and president, no focal defects, no tremors noted Psych: No acute distress, calm and cooperative during the exam Results & Data Results & Data Vital Signs (Past 12 Hours) Vital Signs Temp Pulse Pulse Resp BP BP Pulse Ox 05/10/23 08:30 115 H 21 141/89 H 97 05/10/23 08:15 114 H 15 96 05/10/23 08:15 117 H 16 126/86 96 05/10/23 08:09 131 H 128/86 05/10/23 08:00 119 H 22 139/92 100 05/10/23 07:48 131 H 128/86 05/10/23 07:30 140 H 21 139/94 99 05/10/23 07:27 143 H 05/10/23 07:05 36.4 C L 156 H 16 176/100 H 99 O2 Del Method 05/10/23 08:30 05/10/23 08:15 Room Air 05/10/23 08:15 Room Air 05/10/23 08:09 05/10/23 08:00 05/10/23 07:48 05/10/23 07:30 Room Air 05/10/23 07:27 05/10/23 07:05 Room Air Laboratory Results Abnormal lab results 05/10/23 Range/Units 07:26 WBC 26.07 H (4.8-10.8) K/ul RBC 4.23 L (4.70-6.10) M/uL Hgb 13.9 L (14.0-18.0) g/dl Hct 40.6 L (42.0-52.0) % RDW Std Deviation 46.4 H (36.4-46.3) fL Neut # (Auto) 22.20 H (1.40-6.50) K/uL [place] # (Auto) 1.44 H (0.11-0.59) K/uL Immature Gran # (Auto) 0.22 H (0.01-0.20) K/uL Glucose 142 H (70-99(Fasting)) mg/dl TSH 4.868 H (0.300-4.500) uIu/ml Diagnostic Findings Chest X-Ray 05/10/23 07:19 XR chest 1V portable CLINICAL HISTORY: Chest pain, nonspecific COMPARISON STUDY: Chest radiograph February 10, 2023. FINDINGS: Incidental note is made of surgical anchors within the left humeral head. Lung volumes are normal. Lungs are clear. There is no pneumothorax or pleural effusion. Cardiac size is normal. Mediastinal contours are normal. There is no evidence for pulmonary edema. IMPRESSION: No acute cardiopulmonary findings. ACT 112: Negative or not required by law. Electronically signed by: Alexander Naranjo M.D. 05/10/2023 7:58 AM ECG Additional Comments: Sinus tachycardia Nonspecific ST and T wave abnormality Abnormal ECG When compared with ECG of 10-FEB-2023 17:02, Vent. rate has increased BY 66 BPM Non- specific change in ST segment in Anterior leads T wave inversion now evident in Inferior leads T wave inversion now evident in Anterior leads Code Status & VTE Plan Code Status Full code VTE Prophylaxis Plan VTE Prophylaxis will be ordered: Yes Supervising Physician Co-Signing Physician Notes I personally saw and examined the patient. I verified all flores points and agree with Gustavo Werner PA-C with the following exceptions and/or additions: 72 year old male presents to the ER with his usual SVT not amenable to usual vagal manoeuvres. Initially converted following metoprolol then adenosine given in the ER. Back into SVT which resolved after metoprolol 5mg IV. Then back in again which resolved with vagal manouvres. Discussed with cardiology and recommended started metoprolol tartrate at this time. A/P SVT - suspect precipitate by recent bronchitis infection Acute bronchitis - usually would not warrant antibiotics but given SVT episodes and significantly elevated WBC agree with ceftriaxone given in the ER with PG Care Time/CCT Total # of Minutes Spent Total Time Spent with Patient: Total time spent is greater than 50% in coordination of care (as documented) at patient's floor/unit and/or counseling patient: [place] [address] INT INP/OBS CARE 2/55MIN Patient Type New Medical Decision Making Moderate Complexity Diagnoses Supraventricular tachycardia I47.1 Leukocytosis D72.829 HTN (hypertension) I10 Anxiety F41.9 GERD (gastroesophageal reflux disease) K21.9
[2023-05-10] MEDS ORDERED: guaiFENesin SUGAR FREE 200 MG/10 ML UDC PO PRN (10:40)
[2023-05-10] MEDS ORDERED: LEVALBUTEROL HCL 0.63 MG/3 ML NEB NEB PRN (10:40)
[2023-05-10 11:20] LABS: Magnesium 1.8 mg/dl (1.7-2.4)
[2023-05-10 11:21] LABS: Adenovirus PCR Not Detected (NotDetected); Bordetella parapertussis PCR Not Detected (NotDetected); Bordetella pertussis PCR Not Detected (NotDetected); Chlamydia pneumoniae PCR Not Detected (NotDetected); Coronavirus 229E PCR Not Detected (NotDetected); Coronavirus CoV-2 (COVID19)PCR Not Detected (NotDetected); Coronavirus HKU1 PCR Not Detected (NotDetected); Coronavirus NL63 PCR Not Detected (NotDetected); Coronavirus OC43PCR Not Detected (NotDetected); Human Metapneumovirus PCR Not Detected (NotDetected); Influenza A PCR Not Detected (NotDetected); Influenza B PCR Not Detected (NotDetected); Mycoplasma pneumoniae PCR Not Detected (NotDetected); Parainfluenza Virus 1 PCR Not Detected (NotDetected); Parainfluenza Virus 2 PCR Not Detected (NotDetected); Parainfluenza Virus 3 PCR Not Detected (NotDetected); Parainfluenza Virus 4 PCR Not Detected (NotDetected); Respiratory Syncytial VirusPCR Not Detected (NotDetected); Rhinovirus/Enterovirus PCR Not Detected (NotDetected)
[2023-05-10 11:25] LABS: Troponin I High Sensitivity 22.3 pg/ml (0-20)
[2023-05-10] MEDS: MAGNESIUM SULFATE / D5W 1 GM/100 ML BAG IV SCH ×2 (11:58→13:01)
[2023-05-10 12:04] LABS: Appearance Urine Clear (Clear); Bilirubin Urine Negative (Negative); Blood Urine Negative (Negative); Color Urine Yellow; Glucose Urine UA Negative (Negative); Ketones Urine Negative (Negative); Leukocyte Esterase Urine Negative (Negative); Nitrite Urine Negative (Negative); Protein Urine Negative (Negative); Specific Gravity Urine 1.013 (1.000-1.030); Urobilinogen Urine Negative (Negative); pH Urine 7.5 (4.5-7.5)
--- NOTE | 2023-05-10 13:26 | Electrocardiogram Report ---
Test Reason : Blood Pressure : / mmHG Vent. Rate : 145 BPM Atrial Rate : 145 BPM P-R Int : 138 ms QRS Dur : 084 ms QT Int : 346 ms P-R-T Axes : 000 030 063 degrees QTc Int : 537 ms Sinus tachycardia Nonspecific ST and T wave abnormality Abnormal ECG When compared with ECG of 10-FEB-2023 17:02, Vent. rate has increased BY 66 BPM Non-specific change in ST segment in Anterior leads T wave inversion now evident in Inferior leads T wave inversion now evident in Anterior leads Confirmed by Jules Cates ([id number]) on 05/10/2023 1:26:31 PM Referred By: REFERRED SELF Confirmed By:Jules Cates
--- NOTE | 2023-05-10 13:27 | Electrocardiogram Report ---
Test Reason : Blood Pressure : / mmHG Vent. Rate : 078 BPM Atrial Rate : 078 BPM P-R Int : 176 ms QRS Dur : 076 ms QT Int : 358 ms P-R-T Axes : 053 011 033 degrees QTc Int : 408 ms Poor data quality, interpretation may be adversely affected Normal sinus rhythm Normal ECG When compared with ECG of 10-MAY-2023 07:13, (unconfirmed) Significant changes have occurred Confirmed by Jules Cates ([id number]) on 05/10/2023 1:26:54 PM Referred By: REFERRED SELF Confirmed By:Jules Cates
[2023-05-10] MEDS ORDERED: METOPROLOL TARTRATE 25 MG TAB PO STA (15:36)
[2023-05-10] MEDS: FAMOTIDINE 40 MG TABLET PO SCH (20:31)
[2023-05-10] MEDS ORDERED: METOPROLOL TARTRATE 25 MG TAB PO SCH (21:00)
[2023-05-10] MEDS ORDERED: ATORVASTATIN 40 MG TAB PO SCH (21:00)
[2023-05-10] MEDS ORDERED: ENOXAPARIN INJ 40 MG/0.4 ML SYR SQ SCH (21:00)
[2023-05-11 04:33] LABS: Albumin Globulin Ratio 1.1 (0.9-2); Albumin Level 3.7 gm/dl (3.4-5.0); BUN Creatinine Ratio 15.8 (10-20); Basophils # (auto) 0.05 K/uL (0.00-0.20); Basophils % (auto) 0.4 %; Bilirubin,Total 0.5 mg/dl (0.2-1.0); Calcium 8.9 mg/dl (8.6-10.3); Creatinine Clr Calc Pharmacy 62.3 ml/min; Eosinophils # (auto) 0.36 K/uL (0.00-0.50); Eosinophils % (auto) 2.6 %; Est GFR (African American) 75.1 ml/min; Est GFR (Non-African American) 64.8 ml/min; Globulin 3.4 gm/dl (2.5-4.0); Hematocrit (blood only) 35.4 % (42.0-52.0); Hemoglobin 12.5 g/dl (14.0-18.0); Immature Granulocytes # (auto) 0.07 K/uL (0.01-0.20); Immature Granulocytes % (auto) 0.5 %; Lymphocytes % (auto) 17.9 %; Mean Corpuscular Hemoglobin 33.4 pg (25.0-34.0); Mean Corpuscular Hgb Conc 35.3 g/dL (32.0-36.0); Mean Corpuscular Volume 94.7 fL (80.0-100.0); Mean Platelet Volume 10.4 fL (9.4-12.4); Monocytes # (auto) 1.28 K/uL (0.11-0.59); Monocytes % (auto) 9.2 %; Neutrophils # (auto) 9.69 K/uL (1.40-6.50); Neutrophils % (auto) 69.4 %; Platelet Count 174 K/uL (130-400); Potassium 4.1 mmol/L (3.5-5.1); RDW Coefficient of Variation 13.2 % (11.5-14.5); RDW Standard Deviation 45.3 fL (36.4-46.3); Red Blood Count 3.74 M/uL (4.70-6.10); Total Protein 7.1 gm/dl (6.0-8.3); White Blood Count 13.95 K/ul (4.8-10.8)
[2023-05-11 04:40] LABS: Troponin I High Sensitivity 16.7 pg/ml (0-20)
[2023-05-11] MEDS: FAMOTIDINE 40 MG TABLET PO SCH (08:52)
[2023-05-11] MEDS ORDERED: METOPROLOL TARTRATE 25 MG TAB PO SCH (09:00)
[2023-05-11] MEDS ORDERED: VENLAFAXINE HCL XR 75 MG CAPXR PO SCH (09:00)
[2023-05-11] MEDS ORDERED: VENLAFAXINE HCL XR 37.5 MG CAPXR PO SCH (09:00)
--- NOTE | 2023-05-11 09:38 | Cardiology Consultation ---
Date of Consultation May 11, 2023 Assessment & Plan (1) SVT (supraventricular tachycardia): (2) HTN (hypertension): Plan Mr. Mccollum is a 72 year old male with a history of PSVT, Hypertension, GERD, and Anxiety who developed sudden onset Tachy-palpitations on the afternoon of 05/09/23 that he was unable to break despite repeated Valsalva, vagal maneuvers, and he took 2 cold showers. Unfortunately his tachy-palpitations persisted and his HR stayed up at about 149 bpm. He describes his "heart racing" but he did not have any associated symptoms. He has not had any angina pectoris or anginal equivalent symptoms, overt signs or symptoms of heart failure, nor has he had any neurologic symptoms of stroke, or mini-stroke. He tried to sleep but did not sleep well Thursday night. After having these tachy-palpitations/elevated heart rate for approximately 16 or 17 hours he came into the ER on the morning of 05/10/23 for further evaluation and treatment. In the ER an IV was established and blood work was obtained. CBC with diff showed a leukocytosis of 26,000. No significant anemia. BMP, LFTs, bilirubin were unremarkable. Lipase was normal. High sensitivity Troponin I was normal initially at 12.5 pg/mL with follow up values of 22.3, 20.8, 15.4, and 16.7 pg/ mL -- which likely represents demand ischemia (this is not ACS). TSH was unremarkable. UA was unremarkable. Viral panel was negative. He was given a dose of Rocephin and IV fluids. He was initially was given IV Adenosine and broke into a sinus rhythm then converted back into what appeared to be in SVT with some atrial activity. He was then given Lopressor and Adenosine and converted back to a sinus rhythm which helped longer but then he reverted back into SVT. Following this he was given additional dose of Lopressor after the ER physician discussed the case with cardiology and they recommended another dose as per Dr. Cates. At present the patient is feeling well and has not had any recurrent tachycardia since coming into the ER. Patient met with Dr. Dotson in February 2023. Patient's cardiac history dates back to September 2022 when he felt like he had 2 panic attacks. This was manifested by an elevated heart rate and some palpitations. Dr. Dotson's impression was as follows "The appearance of his SVT was unusual. There was clearly atrial activity between each QRS complex. This appeared to be a long RP tachycardia. However, it did break with vagal maneuvers and could be reentrant. While the exact mechanism is unknown, it was well tolerated and clearly supraventricular." Patient has had 2 or 3 brief episodes of tachycardia since he met with Dr. Dotson in February 2023 -- and each one broke easily with vagal maneuvers, however this most recent episode of tachycardia lasted over 17 hours and he was unable to break it with vagal maneuvers, Valsalva, cold showers, etc. which is concerning for him. No identifiable triggers for his tachycardia. We had a long discussion regarding the ongoing management of this tachycardia. The treatment of choice would be an ablation procedure which would potentially curative. He is hesitant to undergo an invasive procedure because his tachycardia doesn't happen very often. We discussed using Flecainide as a "pill in the pocket" to treat his tachycardia that doesn't break with his usual vagal maneuvers. We also discussed taking a beta savannah on a daily basis to prevent his tachycardia but he is hesitant to do this due to concerns about side effects. Patient has maintained a normal sinus rhythm over the past 26 hours. His blood pressure appears to be well controlled. Recommend the following: -- Begin Flecainide 300 mg daily as needed for recurrent tachycardia that doesn't break with usual vagal maneuvers. -- Consider ablation procedure at some point which would be potentially curative. -- Patient is stable from a cardiac standpoint to be discharged to home. -- Follow up with Dr. Dotson on 05/25/23 at 10:45 a.m. Thank you for asking us to see this patient in consultation. History of Present Illness Reason for Consultation: PSVT. Requesting Physician: Karl Ruiz Attending Physician: Jules Cates MD History of Present Illness Mr. Mccollum is a 72 year old male with a history of PSVT, Hypertension, GERD, and Anxiety who developed sudden onset Tachy-palpitations on the afternoon of 05/09/23 that he was unable to break despite repeated Valsalva, vagal maneuvers, and he took 2 cold showers. Unfortunately his tachy-palpitations persisted and his HR stayed up at about 149 bpm. He describes his "heart racing" but he did not have any associated symptoms. He specifically denies any associated chest pain, heaviness, tightness, pressure, or discomfort. he denies any associated neck, jaw, back, or arm pain. He denies any shortness of breath, orthopnea, or PND. He denies any lightheadedness, syncope, near syncope, nausea, vomiting, or diaphoresis. He tried to sleep but did not sleep well Thursday night. After having these tachy-palpitations/elevated heart rate for approximately 16 or 17 hours he came into the ER for further evaluation and treatment. In the ER an IV was established and blood work was obtained. CBC with diff showed a leukocytosis of 26,000. No significant anemia. BMP, LFTs, bilirubin were unremarkable. Lipase was normal. High sensitivity Troponin I was normal initially at 12.5 pg/mL with follow up values of 22.3, 20.8, 15.4, and 16.7 pg/mL. TSH was unremarkable. UA was unremarkable. Viral panel was negative. He was given a dose of Rocephin and IV fluids. He was initially was given IV Adenosine and broke into a sinus rhythm then converted back into what appeared to be in SVT with some atrial activity. He was then given Lopressor and Adenosine and converted back to a sinus rhythm which helped longer but then he r everted back into SVT. Following this he was given additional dose of Lopressor after the ER physician discussed the case with cardiology and they recommended another dose by Dr. Cates. At present the patient is feeling well and has not had any recurrent tachycardia since coming into the ER. Patient met with Dr. Dotson in February 2023. Patient's cardiac history dates back to September 2022 when he felt like he had 2 panic attacks. This was manifested by an elevated heart rate and some palpitations. Dr. Dotson's impression was as follows "The appearance of his SVT was unusual. There was clearly atrial activity between each QRS complex. This appeared to be a long RP tachycardia. However, it did break with vagal maneuvers and could be reentrant. While the exact mechanism is unknown, it was well tolerated and clearly supraventricular." Allergies Allergy/AdvReac Type Severity Reaction Status Date / Time amoxicillin AdvReac Unknown GI UPSET; Verified 05/10/23 10:00 PT UNSURE IF REALLY ALLERGIC TO IT Home Medications Medication Instructions Recorded Confirmed Type calcium carbonate 600 mg-vitamin 1 cap PO .AT LUNCH TIME 02/17/23 05/10/23 History D3 12.5 mcg (500 unit) capsule (Calcium 600 with Vitamin D3) famotidine 40 mg tablet 40 mg PO BID 02/17/23 05/10/23 History multivitamin 1 tab PO DAILY 02/17/23 05/10/23 History olmesartan 5 mg tablet 5 mg PO DAILY 02/17/23 05/10/23 History omega-3 700 [id number]-[id number] 1 cap PO BID 02/17/23 05/10/23 History oil-flaxseed 320 mg-vit E capsule,DR atorvastatin 40 mg tablet 40 mg PO HS 05/10/23 05/10/23 History celecoxib 100 mg capsule 100 mg PO HS 05/10/23 05/10/23 History diclofenac sodium 1 % topical gel 2 g topical QID PRN LOWER BACK PAIN 05/10/23 05/10/23 History potassium 99 mg tablet 99 mg PO .AT LUNCH TIME 05/10/23 05/10/23 History sildenafil 100 mg tablet 50 - 100 mg PO DAILY PRN Sexual 05/10/23 05/10/23 History Activity venlafaxine 37.5 mg See Rx Instructions .Route .COMPLEX 05/10/23 05/10/23 History capsule,extended release 24 hr venlafaxine 75 mg capsule,extended See Rx Instructions .Route .COMPLEX 05/10/23 05/10/23 History release 24 hr flecainide 150 mg tablet 300 mg (2 x 150 mg) PO ONCE PRN 05/11/23 Rx tachycardia #30 tabs Patient History Social History Smoking Status: Never smoker Second Hand Exposure: No; Do You Dip or Chew Tobacco: No; Hx Alcohol Use: Yes Hx Substance Use: No Preferred Language: Thai Physiatrist Required: No Beliefs That Will Affect Care: None Feels Safe at Home: Yes Assistive Devices: None Review of Systems Review of Systems: -- He denies any neurologic symptoms sug gestive of stroke or mini-stroke. -- He does not experience claudication w ith his day-to-day activities. -- No recent GI or urinary symptoms. -- No fever, chills, or night sweats. -- 10 point ROS was completed and is neg ative with the exception of what is mentioned in the HPI. Physical Exam Physical Exam: GENERAL: Patient in no acute distress. HEENT: Abrasion noted on his left forehead. EOM's intact. Facies symmetric. No perioral cyanosis. NECK: No JVD. JVP is not elevated. Carotid upstrokes are + 2 bilaterally without bruits. CHEST/LUNGS: Clear to auscultation throughout all lung luna. No wheezes, rales, or crackles. CVS: S1 and S2 are regular without murmurs, gallops, or rubs. PMI is nondisplaced. No lifts, heaves, or thrills. No abdominal aortic or renal bruits. ABDOMINAL EXAM: Bowel sounds are present. No masses, organomegaly, or tenderness. EXTREMITIES: No clubbing or cyanosis. No edema. Intact posterior tibial and radial pulses bilaterally. NEUROLOGIC EXAM: Patient is awake, alert, and oriented. Pleasant and cooperative. Answers questions appropriately. Speech is clear. [employer] ASSOCIATE: -- NSR in the 60's to 70's. ECHOCARDIOGRAM 03/13/23: -- Normal LV size, thickness, and systol ic function. -- Grade I LV diastolic dysfunction. -- Mildly dilated RV with normal functio n by TAPSE. -- Mildly dilated right atrium. -- Prolapse of the posterior leaflet of the mitral valve. -- Mild mitral regurgitation. Results & Data Vital Signs (Past 12 Hours) Vital Signs Temp Pulse Pulse Resp BP Pulse Ox O2 Del Method 05/11/23 07:18 36.5 C 69 18 129/85 97 Room Air 05/11/23 07:00 69 05/11/23 03:58 36.9 C 84 16 128/77 97 Room Air 05/11/23 00:08 64 05/10/23 23:25 36.9 C 118 H 18 126/78 97 Room Air 05/10/23 22:28 60 Laboratory Results Laboratory Results - last 24 hr 05/10/23 05/10/23 05/10/23 07:26 09:41 10:21 WBC RBC Hgb Hct MCV MCH MCHC RDW Std Deviation RDW Coeff of George Plt Count MPV Immature Gran % (Auto) Neut % (Auto) Lymph % (Auto) Wilkin % (Auto) Eos % (Auto) Baso % (Auto) Neut # (Auto) Lymph # (Auto) Wilkin # (Auto) Eos # (Auto) Baso # (Auto) Immature Gran # (Auto) Sodium Potassium Chloride Carbon Dioxide Anion Gap BUN Creatinine Est Cr Clr Drug Dosing Est GFR ( Amer) Est GFR (Non-Af Amer) BUN/Creatinine Ratio Glucose Lactate 1.0 Calcium Magnesium 1.8 Total Bilirubin AST ALT Alkaline Phosphatase Troponin I High Sens 22.3 H Total Protein Albumin Globulin Albumin/Globulin Ratio Procalcitonin < 0.05 Urine Color Urine Appearance Urine pH Ur Specific Hudson Urine Protein Urine Glucose (UA) Urine Ketones Urine Blood Urine Nitrite Urine Bilirubin Urine Urobilinogen Ur Leukocyte Esterase Adenovirus (PCR) B. pertussis DNA (PCR) B.parapertussis DNA PCR C. pneumoniae DNA (PCR) Coronavirus OC43 (PCR) Coronavirus HKU1 (PCR) Coronavirus 229E (PCR) SARS-CoV-2 (PCR) Coronavirus NL63 (PCR) Human Metapneumovir PCR Influenza Type A (PCR) Influenza Type B (PCR) M. pneumoniae (PCR) Parainfluenza 1 (PCR) Parainfluenza 2 (PCR) Parainfluenza 3 (PCR) Parainfluenza 4 (PCR) RSV (PCR) Entero/Rhino (PCR) 05/10/23 05/10/23 05/10/23 10:26 11:54 17:03 WBC RBC Hgb Hct MCV MCH MCHC RDW Std Deviation RDW Coeff of George Plt Count MPV Immature Gran % (Auto) Neut % (Auto) Lymph % (Auto) Wilkin % (Auto) Eos % (Auto) Baso % (Auto) Neut # (Auto) Lymph # (Auto) Wilkin # (Auto) Eos # (Auto) Baso # (Auto) Immature Gran # (Auto) Sodium Potassium Chloride Carbon Dioxide Anion Gap BUN Creatinine Est Cr Clr Drug Dosing Est GFR ( Amer) Est GFR (Non-Af Amer) BUN/Creatinine Ratio Glucose Lactate Calcium Magnesium Total Bilirubin AST ALT Alkaline Phosphatase Troponin I High Sens 20.8 H Total Protein Albumin Globulin Albumin/Globulin Ratio Procalcitonin Urine Color Yellow Urine Appearance Clear Urine pH 7.5 Ur Specific Hudson 1.013 Urine Protein Negative Urine Glucose (UA) Negative Urine Ketones Negative Urine Blood Negative Urine Nitrite Negative Urine Bilirubin Negative Urine Urobilinogen Negative Ur Leukocyte Esterase Negative Adenovirus (PCR) Not Detected B. pertussis DNA (PCR) Not Detected B.parapertussis DNA PCR Not Detected C. pneumoniae DNA (PCR) Not Detected Coronavirus OC43 (PCR) Not Detected Coronavirus HKU1 (PCR) Not Detected Coronavirus 229E (PCR) Not Detected SARS-CoV-2 (PCR) Not Detected Coronavirus NL63 (PCR) Not Detected Human Metapneumovir PCR Not Detected Influenza Type A (PCR) Not Detected Influenza Type B (PCR) Not Detected M. pneumoniae (PCR) Not Detected Parainfluenza 1 (PCR) Not Detected Parainfluenza 2 (PCR) Not Detected Parainfluenza 3 (PCR) Not Detected Parainfluenza 4 (PCR) Not Detected RSV (PCR) Not Detected Entero/Rhino (PCR) Not Detected 05/10/23 05/11/23 22:43 03:34 WBC 13.95 H D RBC 3.74 L Hgb 12.5 L Hct 35.4 L MCV 94.7 MCH 33.4 MCHC 35.3 RDW Std Deviation 45.3 RDW Coeff of George 13.2 Plt Count 174 MPV 10.4 Immature Gran % (Auto) 0.5 Neut % (Auto) 69.4 Lymph % (Auto) 17.9 Wilkin % (Auto) 9.2 Eos % (Auto) 2.6 Baso % (Auto) 0.4 Neut # (Auto) 9.69 H Lymph # (Auto) 2.50 Wilkin # (Auto) 1.28 H Eos # (Auto) 0.36 Baso # (Auto) 0.05 Immature Gran # (Auto) 0.07 Sodium 138 Potassium 4.1 Chloride 107 Carbon Dioxide 23 Anion Gap 8 BUN 18 Creatinine 1.14 Est Cr Clr Drug Dosing 62.3 Est GFR ( Amer) 75.1 Est GFR (Non-Af Amer) 64.8 BUN/Creatinine Ratio 15.8 Glucose 90 Lactate Calcium 8.9 Magnesium 2.0 Total Bilirubin 0.5 AST 18 ALT 13 Alkaline Phosphatase 75 Troponin I High Sens 15.4 D 16.7 Total Protein 7.1 Albumin 3.7 Globulin 3.4 Albumin/Globulin Ratio 1.1 Procalcitonin Urine Color Urine Appearance Urine pH Ur Specific Hudson Urine Protein Urine Glucose (UA) Urine Ketones Urine Blood Urine Nitrite Urine Bilirubin Urine Urobilinogen Ur Leukocyte Esterase Adenovirus (PCR) B. pertussis DNA (PCR) B.parapertussis DNA PCR C. pneumoniae DNA (PCR) Coronavirus OC43 (PCR) Coronavirus HKU1 (PCR) Coronavirus 229E (PCR) SARS-CoV-2 (PCR) Coronavirus NL63 (PCR) Human Metapneumovir PCR Influenza Type A (PCR) Influenza Type B (PCR) M. pneumoniae (PCR) Parainfluenza 1 (PCR) Parainfluenza 2 (PCR) Parainfluenza 3 (PCR) Parainfluenza 4 (PCR) RSV (PCR) Entero/Rhino (PCR) Diagnostic Findings CXR 05/10/23: FINDINGS: Incidental note is made of surgical anchors within the left humeral head. Lung volumes are normal. Lungs are clear. There is no pneumothorax or pleural effusion. Cardiac size is normal. Mediastinal contours are normal. There is no evidence for pulmonary edema. IMPRESSION: -- No acute cardiopulmonary findings. Medications Administered Medication List Atorvastatin Calcium (Atorvastatin 40 Mg Tab) 40 mg PO HS [facility] Stop: 06/09/23 20:59 Last Admin: 05/10/23 20:32 Dose: 40 mg Documented By: THIERRY Enoxaparin Sodium (Enoxaparin Inj 40 Mg/0.4 Ml Syr) 40 mg SQ Q24H [facility] Stop: 06/09/23 20:59 Last Admin: 05/10/23 20:32 Dose: 40 mg Documented By: THIERRY Famotidine (Famotidine 40 Mg Tablet) 40 mg PO BID [facility] Stop: 06/09/23 20:59 Last Admin: 05/11/23 08:52 Dose: 40 mg Documented By: Admin: 05/10/23 20:31 Dose: 40 mg Documented By: THIERRY Ceftriaxone Sodium 2,000 mg/ (Dextrose) 50 mls @ 100 mls/hr IV Q24H [facility]; Protocol Stop: 05/18/23 09:59 Last Admin: 05/11/23 08:52 Dose: 100 mls/hr Documented By: BOBBY Metoprolol Tartrate (Metoprolol Tartrate 25 Mg Tab) 25 mg PO BID [facility] Stop: 06/10/23 08:59 Last Admin: 05/11/23 08:51 Dose: 25 mg Documented By: BOBBY Venlafaxine HCl (Venlafaxine Hcl Xr 37.5 Mg Capxr) 37.5 mg PO QAM [facility] Stop: 06/10/23 08:59 Last Admin: 05/11/23 08:51 Dose: 37.5 mg Documented By: BOBBY Venlafaxine HCl (Venlafaxine Hcl Xr 75 Mg Capxr) 75 mg PO DAILY [facility] Stop: 06/10/23 08:59 Last Admin: 05/11/23 08:51 Dose: 75 mg Documented By: BOBBY Discontinued Medications Adenosine (Adenosine Iv Soln 3 Mg/Ml 2 Ml Vial) Confirm Administered Dose 6 mg IV .STK-MED ONE Stop: 05/10/23 07:25 Last Admin: 05/10/23 07:47 Dose: 6 mg Documented By: DIONY Adenosine (Adenosine Iv Soln 3 Mg/Ml 2 Ml Vial) Confirm Administered Dose 6 mg IV .STK-MED ONE Stop: 05/10/23 08:42 Last Admin: 05/10/23 08:56 Dose: Not Given Documented By: DIONY Adenosine (Adenosine Iv Soln 3 Mg/Ml 2 Ml Vial) 6 mg IV NOW STA Stop: 05/10/23 08:45 Last Admin: 05/10/23 08:55 Dose: 6 mg Documented By: DIONY Sodium Chloride (Nss) 1,000 mls @ 999 mls/hr IV .Q1H1M ONE Stop: 05/10/23 08:19 Last Infusion: 05/10/23 08:56 Dose: Infused Documented By: Admin: 05/10/23 07:48 Dose: 999 mls/hr Documented By: DIONY Ceftriaxone Sodium (Rocephin) 2,000 mg in 50 mls @ 100 mls/hr IV NOW STA Stop: 05/10/23 09:45 Last Infusion: 05/10/23 10:39 Dose: Infused Documented By: Admin: 05/10/23 09:56 Dose: 100 mls/hr Documented By: DIONY Sodium Chloride (Nss) 1,000 mls @ 999 mls/hr IV .Q1H1M ONE Stop: 05/10/23 10:27 Last Infusion: 05/10/23 11:45 Dose: Infused Documented By: Admin: 05/10/23 10:39 Dose: 999 mls/hr Documented By: DIONY Magnesium Sulfate/Dextrose (Magnesium Sulfate / D5w) 1 gm in 100 mls @ 100 mls/hr IV Q1H [facility] Stop: 05/10/23 13:20 Last Infusion: 05/10/23 14:21 Dose: Infused Documented By: Admin: 05/10/23 13:01 Dose: 100 mls/hr Documented By: Infusion: 05/10/23 13:00 Dose: Infused Documented By: Admin: 05/10/23 11:58 Dose: 100 mls/hr Documented By: DIONY Metoprolol Tartrate (Metoprolol Tartrate 1 Mg/Ml Vial) Confirm Administered Dose 5 mg IV .STK-MED ONE Stop: 05/10/23 07:46 Last Admin: 05/10/23 07:48 Dose: 5 mg Documented By: DIONY Metoprolol Tartrate (Metoprolol Tartrate 1 Mg/Ml Vial) 5 mg IV NOW STA Stop: 05/10/23 07:57 Last Admin: 05/10/23 08:22 Dose: Not Given Documented By: DIONY Metoprolol Tartrate (Metoprolol Tartrate 1 Mg/Ml Vial) 5 mg IV PRN PRN PRN Reason: tachycardia Last Admin: 05/10/23 15:09 Dose: 5 mg Documented By: DIONY Metoprolol Tartrate (Metoprolol Tartrate 25 Mg Tab) 25 mg PO NOW STA Stop: 05/10/23 15:37 Last Admin: 05/10/23 16:02 Dose: 25 mg Documented By: DIONY Metoprolol Tartrate (Metoprolol Tartrate 25 Mg Tab) 25 mg PO Q6H [facility] Stop: 06/09/23 20:59 Last Admin: 05/10/23 20:32 Dose: 25 mg Documented By: THIERRY Potassium Chloride (Potassium Chloride Crtab 20 Meq Tabcr) 40 meq PO NOW STA Stop: 05/10/23 10:08 Last Admin: 05/10/23 10:39 Dose: 40 meq Documented By: DIONY PG Care Time/CCT Total # of Minutes Spent Total Time Spent with Patient: Total time spent is greater than 50% in coordination of care (as documented) at patient's floor/unit and/or counseling patient:52 C[place] [address] INT INP/OBS CARE 1/40MIN Patient Type Established History Detailed Exam Detailed Medical Decision Making Straight Forward Diagnoses SVT (supraventricular tachycardia) I47.10 HTN (hypertension) I10 Hypertension type: unspecified Time Spent (min) 66 (2) HTN (hypertension) Hypertension type: unspecified Qualified Code(s): I10 - Essential (primary) hypertension
[2023-05-11] MEDS ORDERED: cefTRIAXone SODIUM 2,000 MG in DEXTROSE 5 % MINI-B 50 ML IV SCH (10:00)
--- NOTE | 2023-05-11 14:58 | Discharge Summary ---
Date of Service May 11, 2023 Admission HPI Per Admitting Provider Fly is a 72 year old male with a PMH significant HTN, anxiety, GERD, and SVT who presented to the [facility] ED on 05/10 with complaints of recurrent tachycardia. In the ED he was noted to be tachycardic with HR in the 150's but was otherwise stable. Labs were significant for a leukocytosis of 26 with Neutrophil predominance of 22, high sen trop WNL, and TSH of 4.86 with Free T4 WNL. Chest xray was read as negative for acute findings. ECG showed SVT in the 140's with T-wave inversions in the anterior and inferior leads. The patient was initially given 6mg IV adenosine with conversion to NSR, but the patient flipped back into SVT shortly after. He received a dose of 5 mg IV lopressor and and additional 6 mg IV adenosine with conversion back to NSR again. Prior to admission the patient was also given 1L NSS with a second liter ordered and a dose of ceftriaxone. At the time of the exam the patient was sitting in bed in no acute distress, currently with HR in the 70's in NSR. He states that he started to develop upper respiratory symptoms such as congestion, minimally productive cough, and fatigue approximately one week ago. He denies recent fever, chills, chest pain, SOB, hemoptysis, pleuritic chest pain, abd pain, nausea, vomiting, dysuria, hematuria, melena, and recent trauma. He did fly from [place] to [place] on 05/04. When asked, he states that he had mild, symmetrical, BL LE swelling ju st proximal to his ankles the day after the flight; however, this has subsequently resolved. Yesterday his sputum productive changed from white to green/yellow. He states that he started to develop tachycardia last afternoon while resting. He states he has used all the techniques Cardiology taught him such as Carotid massage, vagal maneuvers, drinking cold water, splashing cold water on his face, and taking a cold shower without resolution of his symptoms. He came to the ED this am as his tachycardia would not resolve. He currently feels well and has no complaints. He has no other symptoms to suggest other sources of infection such as sinus pressure/pain, nausea, vomiting, dysuria, hematuria, and recent wounds/skin infections. When asked, he had one episode of non-bloody diarrhea when his URI symptoms started on 05/04 but denies other episodes of diarrhea. He is a full code and would want his to make medical decisions for him if he cannot make them himself. Please refer to Dr. Wei's attestation for any changes to the treatment plan Principal Diagnosis tachycardia Discharge Exam General: WN/WD, NAD, VS as above Resp: normal respiratory effort, lungs clear to auscultation CV: RRR, no murmur, no edema Abd: normal bowel sounds, non tender, no hepatosplenomegaly Extremities: Moves all extremities, no edema Neuro: A&O x3, Skin: intact, no lesions noted Discharge Data Allergies Allergy/AdvReac Type Severity Reaction Status Date / Time amoxicillin AdvReac Unknown GI UPSET; Verified 05/10/23 10:00 PT UNSURE IF REALLY ALLERGIC TO IT Consultations 05/10/23 09:17 ED Decision to Admit Stat 05/10/23 10:55 Consult Cardiology Routine Hospital Course (1) Supraventricular tachycardia: -17hours of tachycardia at home, despite vagal maneuvers - converted -S/P 2 doses of 6 mg IV adenosine and 5 mg IV metoprolol -Has a known hx of relatively asymptomatic and intermittent SVT, last seen by Cardiology on 02/17/23 -Exact etiology is unknown at this time, could possible be due to recent respiratory infection exacerbating his known intermittent SVT -Low suspicion for PE at this time as he is without signs/symptoms of DVT, has been hemodynamically stable, stable on RA, and without pleuritic chest pain -Potassium is 4.1, Mag 2.0 -Last echo was on 03/13/23, showed Grade 1 diastolic dysfunction mitral mild mitral regurgitation, and mitral valve prolapse but otherwise unremarkable >Will hold repeat echo for now -High sen trop is WNL, patient is without chest pain to suggest ACS at this time Cardiology Consult - Begin Flecainide 300 mg daily as needed for recurrent tachycardia that doesn't break with usual vagal maneuvers. - Consider ablation procedure - Stop olmesartan and start metoprolol 25 mg BID (2) Leukocytosis: -Patient noted to have a significant leukocytosis of 26 with neutrophile predominance of 22 -He has had respiratory symptoms over the past week such as congestion, productive cough now with green sputum, and fatigue -No sinus pressure/pain, abdominal symptoms, urinary symptoms, or signs of skin infection - UA and biofire negative -While a portion of his leukocytosis could be reactive from his Tachycardia, cannot rule out infection at this time -CXR was read as negative for acute findings -Received ceftriaxone x2 - will transition to doxycycline 100 mg BID x5 days given pt amoxicillin allergy - Blood cultures pending, negative at 24 hours (3) HTN (hypertension): -Stable Stop Olmesartan and start metoprolol as above (4) Anxiety: -Continue Venlafaxine (5) GERD (gastroesophageal reflux disease): -Conitnue famotidine Plan Discharge to home with follow up with cardiology Total Time Total Time Spent Total Time Spent (In Minutes): 35 Discharge Plan Discharge Items Patient Disposition: Home - Self-Care Reason For Visit: SVT, LEUKOCYTOSIS Discharge Diagnosis: SVT, acute bronchitis Condition on Discharge: Good Activity: Resume your previous activity Lifting: Gradually increase as tolerated Non-emergency contact: 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 Mccollum, Kobe were admitted to the hospital after a prolonged episode of tachycardia. During your stay, you were given Lopressor and adenosine to help convert back to normal rhythm. After discussion with cardiology you have decided to use Flecainide 300mg as needed for the tachycardia that does not break with vagal maneuvers. You will also stop the Olmesartan and start the Metoprolol twice day. You have a follow up appointment scheduled with Dr. Dotson on 05/25/2023 at 10:45 where this can be further discussed. They are aware you are wishing to have the ablation done, and will discuss and likely schedule that during the follow up appointment as well. During your stay you were also noted to have an elevated White blood cell count, that has responded nicely to antibiotics. This is likely from bronchitis. Will continue antibiotics with doxycycline 100mg twice a day for 5 days. Start this tomorrow morning, 05/12/2023, and take this with food. Because of the white count, blood cultures were also taken to make sure there was no bacteria growing in the blood. These were negative at 24 hours, but take 5 days to have the final result. Please follow up with your PCP to make sure these remain negative. If you have any recurrence of symptoms, or new symptoms like chest pain or SOB of breath, please contact the [employer] [facility] or return to the ER. It was our pleasure taking care of you, Riana King PA-C Pending Studies at Discharge: Yes (Blood Cultures - no growth at 24 hours ) Studies:: Blood cultures Stand-Alone Forms: My [facility] [employer], Smoking Cessation Medications and DC Order Prescriptions: New metoprolol tartrate 25 mg Tablet 25 mg PO BID 30 Days Qty: 60 0RF doxycycline hyclate 100 mg capsule 100 mg PO BID 5 Days Qty: 10 0RF guaifenesin 100 mg/5 mL Liquid 200 mg PO Q6H Qty: 10 0RF Continued flecainide 150 mg tablet 300 mg PO ONCE MDD 300 mg PRN (Reason: tachycardia) Qty: 30 5RF calcium carbonate-vitamin D3 [Calcium 600 with Vitamin D3] 600 mg-12.5 mcg (500 unit) capsule 1 cap PO .AT LUNCH TIME [id number] 700-320 mg capsule,delayed release(DR/EC) 1 cap PO BID multivitamin Tablet 1 tab PO DAILY famotidine 40 mg tablet 40 mg PO BID atorvastatin 40 mg tablet 40 mg PO HS venlafaxine 37.5 mg capsule,extended release 24hr See Rx Instructions .ROUTE .COMPLEX Rx Instructions: Take 37.5mg w/75mg = 112.5mg by mouth every morning venlafaxine 75 mg capsule,extended release 24hr See Rx Instructions .ROUTE .COMPLEX Rx Instructions: Take 75mg w/37.5mg = 112.5mg by mouth every morning sildenafil 100 mg tablet 50 - 100 mg PO DAILY PRN (Reason: Sexual Activity) celecoxib 100 mg capsule 100 mg PO HS diclofenac sodium 1 % gel 2 g TOPICAL QID PRN (Reason: LOWER BACK PAIN) Held potassium 99 mg Tablet 99 mg PO .AT LUNCH TIME Hold Instructions: Resume on 06/01/23. hold until appointment with cardiology Discontinued olmesartan 5 mg tablet 5 mg PO DAILY Discharge Orders: Discharge Order (Routine); Ordered 05/11/23 Ordered By: Riana King Admission Data Admit Date/Time: 05/10/23 10:16 Attending Provider: Karl Ruiz Admit Provider: Damian Wei Primary Care Provider: Pancho Pedraza Other Providers: Damian Wei; Jules Cates Coding Level of Care Code 94677 INP/OBS DISCH >30 MIN Diagnoses Supraventricular tachycardia I47.1 Leukocytosis D72.829 Leukocytosis type: unspecified HTN (hypertension) I10 Hypertension type: unspecified Anxiety F41.9 GERD (gastroesophageal reflux disease) K21.9
[2023-05-11] MEDS ORDERED: FLECAINIDE ACETATE 100 MG TABLET PO ONE (15:22)
== END 2023-05-11 19:00 | disposition home or self-care (01) | DRG 310 ==
LOC: ED 06:59 → SUATTDRO 10:16 → EDINP 10:16 → 4W 19:59